=== PATIENT | female | born 1960 | race Caucasian/White ===

== ENCOUNTER → 2018-03-15 | Outpatient (CLI) | payer OTHER, MEDICARE ==
[~2018-03-15] MED LIST: ATOR10TA PO; METH500T7 PO; NITR100C56 PO; UNK BP MED; [UNRECOGNIZED DRUG - REMARK]
[2018-03-15 14:17] LABS: BASOPHILS # (AUTO) 0.04 x10^3/uL (0-0.1); BASOPHILS % (AUTO) 0 % (0-1); EOSINOPHILS # (AUTO) 0.24 x10^3/uL (0-0.4); EOSINOPHILS % (AUTO) 3 % (1-7); LYMPHOCYTES % (AUTO) 38 % (22-44); MD NO; MEAN CORPUSCULAR HEMOGLOBIN 29.8 pg (27.0-34.8); MEAN CORPUSCULAR HGB CONC 33.6 g/dL (32.4-35.8); MEAN CORPUSCULAR VOLUME 88.8 fL (80-100); MEAN PLATELET VOLUME 8.2 fL (7.4-10.4); MONOCYTES # (AUTO) 0.54 x10^3/uL (0.2-0.8); MONOCYTES % (AUTO) 5 % (2-9); NEUTROPHILS # (AUTO) 5.28 x10^3/uL (1.8-6.8); NEUTROPHILS % (AUTO) 53 % (42-75); PLATELET COUNT 298 x10^3/uL (130-400); RED BLOOD COUNT 5.37 x10^6/uL (3.82-5.3); RED CELL DISTRIBUTION WIDTH 13.2 % (9.6-15.2)
[2018-03-15 14:24] LABS: INTERNATIONAL NORMALIZED RATIO 1.02 (0.93-1.1); PROTHROMBIN TIME 10.5 Seconds (9.6-11.5)
[2018-03-15 14:27] LABS: ALANINE AMINOTRANSFERASE 23 U/L (12-78); ALBUMIN 3.3 g/dL (3.4-5.0); ANION GAP 10 mmol/L (5-15); CALCIUM 9.2 mg/dL (8.5-10.1); CHLORIDE 98 mmol/L (98-107); CREATININE 0.69 mg/dL (0.55-1.02)
[2018-03-15 14:28] LABS: ALKALINE PHOSPHATASE 82 U/L (45-117); BILIRUBIN,TOTAL 0.3 mg/dL (0.2-1.0); TOTAL PROTEIN 7.7 g/dL (6.4-8.2)
[2018-03-15 14:30] LABS: MICROSCOPIC NOT IND
[2018-03-15 14:46] LABS: CULTURE INDICATED? NO
== END | disposition home or self-care (01) ==
LOC: STAR 13:10
PROVIDERS: ATTEND Neurological Surgery
DX: Z01.818 Encounter for other preprocedural examination (principal); M51.37 Other intervertebral disc degeneration, lumbosacral region; M48.061 Spinal stenosis, lumbar region without neurogenic claudication; M41.34 Thoracogenic scoliosis, thoracic region; M99.13 Subluxation complex (vertebral) of lumbar region
CPT/HCPCS: 36415; 71046; 72110; 80053; 81003; 85025; 85610; 85730; 93005

== ENCOUNTER 2018-03-24 07:00 | Inpatient (IN) | payer OTHER, MEDICARE ==
[~2018-03-24] VITALS: Ht 170.2 cm; Wt 99.4 kg
[~2018-03-24 07:00] MED LIST changes: +ALPR-475 PO; +BACITRACIN 50,000 UNIT ONE; +BUPIVACAINE 0.25% ONE; +BUPIVACAINE/PF 0.5% ONE; +CITA20TA6 PO; +EPINEPHRINE 1 MG/ML, 1ML ONE; +INSU200I4 SQ-INSULIN; +LISI-170 PO; +ONDA4TAB7 PO; +PIOG30TA67 PO
[2018-03-24] MEDS ORDERED: LACTATED RINGERS 1,000 ML IV SCH (09:49)
[2018-03-24] MEDS ORDERED: GABAPENTIN 300 MG CAPSULE PO ONE (10:00)
[2018-03-24] MEDS ORDERED: ONDANSETRON ODT 8 MG PO ONE (10:00)
[2018-03-24] MEDS ORDERED: MIDAZOLAM 1 MG/ML, 2ML ONE (10:30)
[2018-03-24] MEDS ORDERED: PROPOFOL 10 MG/ML, 20ML ONE (10:30)
[2018-03-24] MEDS ORDERED: DEXAMETHASONE 4 MG/ML, 1ML ONE ×2 (10:30)
[2018-03-24] MEDS ORDERED: CEFAZOLIN 1,000 MG ONE ×2 (10:30)
[2018-03-24] MEDS ORDERED: FENTANYL PF 250 MCG/5ML ONE (10:30)
[2018-03-24] MEDS ORDERED: SUCCINYLCHOLINE 20 MG/ML, 10ML ONE (10:30)
[2018-03-24] MEDS ORDERED: PROPOFOL 50 ML ONE ×4 (10:31→14:43)
[2018-03-24 10:39] LABS: HCG UR SG 1.022 (1.003-1.030)
[2018-03-24 10:50] LABS: AMPHETAMINE SCREEN, URINE Negative (Negative); BARBITURATE SCREEN, URINE Negative (Negative); BENZODIAZEPINE SCREEN, URINE Negative (Negative); CANNABINOID SCREEN, URINE Positive (Negative); COCAINE SCREEN, URINE Negative (Negative); METHADONE SCREEN, URINE Negative (Negative); OPIATE SCREEN, URINE Negative (Negative)
[2018-03-24] MEDS ORDERED: PHENYLEPHRINE 10 MG/ML ONE (11:41)
[2018-03-24] MEDS ORDERED: ROCURONIUM 10 MG/ML,10ML ONE (11:41)
[2018-03-24] MEDS ORDERED: FENTANYL PF 100 MCG/2ML ONE ×2 (12:34→16:08)
[2018-03-24] MEDS ORDERED: EPHEDRINE 50 MG/ML, 1ML IVPush PRN (13:30)
[2018-03-24] MEDS ORDERED: PROCHLORPERAZINE 5 MG/ML, 2ML IV PRN (13:30)
[2018-03-24] MEDS ORDERED: ALBUTEROL/IPRATROPIUM 2.5MG/0.5MG, 3 ML NPPB PRN (13:30)
[2018-03-24] MEDS ORDERED: FENTANYL PF 100 MCG/2ML IV PRN (13:30)
[2018-03-24] MEDS ORDERED: MEPERIDINE/PF 25MG/0.5ML IVPush PRN (13:30)
[2018-03-24] MEDS ORDERED: LORazepam 2 MG/ML, 1ML IVPush PRN (13:30)
[2018-03-24] MEDS ORDERED: MORPHINE SULFATE 4 MG/ML, 1ML IVPush PRN (13:30)
[2018-03-24] MEDS ORDERED: METOPROLOL 1 MG/ML, 5ML IV PRN (13:30)
[2018-03-24] MEDS ORDERED: OXYcodone 5 MG/5 ML ORAL.SOL UDC PO PRN (13:30)
[2018-03-24] MEDS ORDERED: MIDAZOLAM 1 MG/ML, 2ML IV PRN (13:30)
[2018-03-24] MEDS ORDERED: SCOPOLAMINE PATCH, 1.5MG PATCH.TD72 TD PRN (13:30)
[2018-03-24] MEDS ORDERED: hydrALAzine 20 MG/ML, 1ML IV PRN (13:30)
[2018-03-24] MEDS ORDERED: HYDROmorphone 1 MG/ML, 1ML IV PRN (13:30)
[2018-03-24] MEDS ORDERED: LABETALOL 5MG/ML, 20ML IV PRN ×2 (13:30→18:00)
[2018-03-24] MEDS ORDERED: BUPIVACAINE/PF 0.25% EPIDPUSH ONE (14:26)
[2018-03-24] MEDS ORDERED: FENTANYL PF 100 MCG/2ML EPIDPUSH ONE (14:26)
[2018-03-24] MEDS ORDERED: INSULIN SINGLE DOSE, ER SQ-INSULIN ONE ×2 (15:54→16:54)
[2018-03-24] MEDS ORDERED: INSULIN REGULAR 100 UNITS/ML, 3ML VIAL SQ-INSULIN ONE ×2 (16:00→17:00)
[2018-03-24] MEDS ORDERED: OXYcodone 5 MG/5 ML ORAL.SOL UDC ONE (16:08)
[2018-03-24] MEDS ORDERED: BISACODYL 10 MG SUPP PR PRN (18:00)
[2018-03-24] MEDS ORDERED: PROMETHAZINE 25 MG/ML, 1ML IM PRN (18:00)
[2018-03-24] MEDS ORDERED: ONDANSETRON 2MG/ML, 2ML IV PRN (18:00)
[2018-03-24] MEDS ORDERED: ONDANSETRON ODT 4 MG PO PRN (18:30)
[2018-03-24] MEDS: NS + 20MEQ KCL 1,000 ML IV SCH (18:33)
[2018-03-24] MEDS: CEFAZOLIN PMX 1GM/50ML 50 ML IVPB SCH (18:33)
[2018-03-24 18:46] VITALS: BP 119/72
[2018-03-24] MEDS ORDERED: METHOCARBAMOL 1,000 MG in DEXTROSE 5% 100 ML IV ONE (19:00)
[2018-03-24] MEDS: morphine SULFATE 10 MG/ML, 1ML IV PRN ×2 (19:42→23:50)
[2018-03-24] MEDS ORDERED: ZOLPIDEM 5MG TABLET PO PRN (21:00)
[2018-03-24] MEDS: DOXYCYCLINE 100MG TABLET PO SCH (21:56)
[2018-03-24] MEDS: INSULIN REGULAR 100 UNITS/ML, 3ML VIAL SQ-INSULIN SCH (21:58)
[2018-03-24] MEDS: OXYcodone/APAP 5/325MG TABLET PO PRN (23:50)
[2018-03-25] MEDS: morphine SULFATE 10 MG/ML, 1ML IV PRN ×4 (00:09→16:23)
[2018-03-25 00:39] VITALS: BP 111/68
[2018-03-25] MEDS: CEFAZOLIN PMX 1GM/50ML 50 ML IVPB SCH ×3 (03:08→18:08)
[2018-03-25] MEDS: NS + 20MEQ KCL 1,000 ML IV SCH ×3 (03:40→23:43)
[2018-03-25] MEDS: METHOCARBAMOL 750 MG in DEXTROSE 5% 100 ML IV SCH ×3 (03:45→19:40)
[2018-03-25 05:43] LABS: BASOPHILS # (AUTO) 0.02 x10^3/uL (0-0.1); BASOPHILS % (AUTO) 0 % (0-1); EOSINOPHILS # (AUTO) 0.01 x10^3/uL (0-0.4); EOSINOPHILS % (AUTO) 0 % (1-7); LYMPHOCYTES % (AUTO) 12 % (22-44); MD NO; MEAN CORPUSCULAR HEMOGLOBIN 30.2 pg (27.0-34.8); MEAN CORPUSCULAR HGB CONC 33.6 g/dL (32.4-35.8); MEAN CORPUSCULAR VOLUME 89.9 fL (80-100); MEAN PLATELET VOLUME 8.1 fL (7.4-10.4); MONOCYTES # (AUTO) 0.77 x10^3/uL (0.2-0.8); MONOCYTES % (AUTO) 5 % (2-9); NEUTROPHILS # (AUTO) 12.65 x10^3/uL (1.8-6.8); NEUTROPHILS % (AUTO) 82 % (42-75); PLATELET COUNT 251 x10^3/uL (130-400); RED BLOOD COUNT 4.32 x10^6/uL (3.82-5.3); RED CELL DISTRIBUTION WIDTH 13.6 % (9.6-15.2)
[2018-03-25 05:48] LABS: ANION GAP 9 mmol/L (5-15); CALCIUM 7.9 mg/dL (8.5-10.1); CHLORIDE 104 mmol/L (98-107)
[2018-03-25 05:49] LABS: CREATININE 0.79 mg/dL (0.55-1.02)
[2018-03-25] MEDS: ENOXAPARIN 40 MG/0.4 ML SQ SCH (06:29)
[2018-03-25] MEDS: OXYcodone/APAP 5/325MG TABLET PO PRN (06:35)
[2018-03-25] MEDS: INSULIN REGULAR 100 UNITS/ML, 3ML VIAL SQ-INSULIN SCH ×4 (07:00→20:59)
[2018-03-25 07:50] VITALS: BP 105/69
[2018-03-25] MEDS: PIOGLITAZONE 15 MG TABLET PO SCH (08:57)
[2018-03-25] MEDS: INSULIN DEGLUDEC SQ-INSULIN SCH (09:00)
[2018-03-25] MEDS: DOXYCYCLINE 100MG TABLET PO SCH ×2 (09:12→20:58)
[2018-03-25] MEDS: SENNA/DOCUSATE TABLET PO SCH (09:12)
[2018-03-25] MEDS: LISINOPRIL 20 MG TABLET PO SCH (09:12)
[2018-03-25] MEDS: CITALOPRAM 20 MG TABLET PO SCH (09:12)
[2018-03-25 12:50] VITALS: BP 112/67
[2018-03-25] MEDS: ONDANSETRON 2MG/ML, 2ML IV PRN (13:06)
[2018-03-25] MEDS: HYDROcodone/APAP 10/325 MG TABLET PO PRN ×2 (13:13→19:40)
[2018-03-25 19:30] VITALS: BP 106/67
[2018-03-26 01:11] VITALS: BP 109/66
[2018-03-26] MEDS: HYDROcodone/APAP 10/325 MG TABLET PO PRN ×4 (01:22→20:20)
[2018-03-26] MEDS: CEFAZOLIN PMX 1GM/50ML 50 ML IVPB SCH ×3 (02:28→18:07)
[2018-03-26] MEDS: METHOCARBAMOL 750 MG in DEXTROSE 5% 100 ML IV SCH ×3 (03:09→20:19)
[2018-03-26] MEDS: HYDROmorphone 2MG TABLET PO PRN ×3 (03:54→15:28)
[2018-03-26] MEDS: ONDANSETRON 2MG/ML, 2ML IV PRN (04:04)
[2018-03-26] MEDS: ENOXAPARIN 40 MG/0.4 ML SQ SCH (05:27)
[2018-03-26 05:49] LABS: BASOPHILS # (AUTO) 0.02 x10^3/uL (0-0.1); BASOPHILS % (AUTO) 0 % (0-1); EOSINOPHILS # (AUTO) 0.16 x10^3/uL (0-0.4); EOSINOPHILS % (AUTO) 1 % (1-7); LYMPHOCYTES # (AUTO) 2.97 x10^3/uL (1-3.4); LYMPHOCYTES % (AUTO) 21 % (22-44); MD NO; MEAN CORPUSCULAR HEMOGLOBIN 30.4 pg (27.0-34.8); MEAN CORPUSCULAR HGB CONC 33.8 g/dL (32.4-35.8); MEAN CORPUSCULAR VOLUME 89.9 fL (80-100); MEAN PLATELET VOLUME 8.2 fL (7.4-10.4); MONOCYTES # (AUTO) 0.75 x10^3/uL (0.2-0.8); MONOCYTES % (AUTO) 5 % (2-9); NEUTROPHILS # (AUTO) 10.06 x10^3/uL (1.8-6.8); NEUTROPHILS % (AUTO) 72 % (42-75); PLATELET COUNT 221 x10^3/uL (130-400); RED BLOOD COUNT 4.22 x10^6/uL (3.82-5.3); RED CELL DISTRIBUTION WIDTH 13.8 % (9.6-15.2)
[2018-03-26 05:51] LABS: ANION GAP 8 mmol/L (5-15); CALCIUM 7.7 mg/dL (8.5-10.1); CHLORIDE 106 mmol/L (98-107); CREATININE 0.61 mg/dL (0.55-1.02)
[2018-03-26 07:43] VITALS: BP 124/74
[2018-03-26] MEDS: PIOGLITAZONE 15 MG TABLET PO SCH (07:56)
[2018-03-26] MEDS: INSULIN REGULAR 100 UNITS/ML, 3ML VIAL SQ-INSULIN SCH ×4 (07:56→20:20)
[2018-03-26] MEDS: CITALOPRAM 20 MG TABLET PO SCH (07:56)
[2018-03-26] MEDS: SENNA/DOCUSATE TABLET PO SCH (07:56)
[2018-03-26] MEDS: DOXYCYCLINE 100MG TABLET PO SCH ×2 (07:56→20:20)
[2018-03-26] MEDS: LISINOPRIL 20 MG TABLET PO SCH (07:57)
[2018-03-26] MEDS: INSULIN DEGLUDEC SQ-INSULIN SCH (08:05)
[2018-03-26] MEDS: NS + 20MEQ KCL 1,000 ML IV SCH ×2 (10:00→20:00)
[2018-03-26 14:24] VITALS: BP 102/47
[2018-03-26] MEDS: MAGNESIUM HYDROXIDE 8%, 30ML UDC PO PRN (16:46)
[2018-03-26 19:30] VITALS: BP 124/72
[2018-03-27] MEDS: HYDROcodone/APAP 10/325 MG TABLET PO PRN ×5 (00:54→20:44)
[2018-03-27 01:07] VITALS: BP 105/68
[2018-03-27] MEDS: HYDROmorphone 2MG TABLET PO PRN (01:57)
[2018-03-27] MEDS: CEFAZOLIN PMX 1GM/50ML 50 ML IVPB SCH ×3 (01:57→18:27)
[2018-03-27] MEDS: METHOCARBAMOL 750 MG TABLET PO SCH ×3 (02:35→21:01)
[2018-03-27] MEDS: NS + 20MEQ KCL 1,000 ML IV SCH ×3 (04:00→23:19)
[2018-03-27] MEDS: ENOXAPARIN 40 MG/0.4 ML SQ SCH (05:01)
[2018-03-27 05:45] LABS: BASOPHILS # (AUTO) 0.03 x10^3/uL (0-0.1); BASOPHILS % (AUTO) 0 % (0-1); EOSINOPHILS # (AUTO) 0.16 x10^3/uL (0-0.4); EOSINOPHILS % (AUTO) 1 % (1-7); LYMPHOCYTES # (AUTO) 3.43 x10^3/uL (1-3.4); LYMPHOCYTES % (AUTO) 27 % (22-44); MD NO; MEAN CORPUSCULAR HGB CONC 33.5 g/dL (32.4-35.8); MEAN CORPUSCULAR VOLUME 89.7 fL (80-100); MEAN PLATELET VOLUME 8.1 fL (7.4-10.4); MONOCYTES # (AUTO) 0.76 x10^3/uL (0.2-0.8); MONOCYTES % (AUTO) 6 % (2-9); NEUTROPHILS # (AUTO) 8.31 x10^3/uL (1.8-6.8); NEUTROPHILS % (AUTO) 66 % (42-75); PLATELET COUNT 236 x10^3/uL (130-400); RED BLOOD COUNT 4.24 x10^6/uL (3.82-5.3); RED CELL DISTRIBUTION WIDTH 13.8 % (9.6-15.2)
[2018-03-27 05:50] LABS: ANION GAP 5 mmol/L (5-15); CHLORIDE 103 mmol/L (98-107)
[2018-03-27 05:51] LABS: CREATININE 0.65 mg/dL (0.55-1.02)
[2018-03-27] MEDS: INSULIN REGULAR 100 UNITS/ML, 3ML VIAL SQ-INSULIN SCH ×4 (07:00→21:00)
[2018-03-27 07:19] VITALS: BP 102/67
[2018-03-27] MEDS: INSULIN DEGLUDEC SQ-INSULIN SCH (09:00)
[2018-03-27] MEDS: DIPHENHYDRAMINE 50 MG CAPSULE PO PRN ×2 (09:33→13:20)
[2018-03-27] MEDS: PIOGLITAZONE 15 MG TABLET PO SCH (09:33)
[2018-03-27] MEDS: SENNA/DOCUSATE TABLET PO SCH (09:34)
[2018-03-27] MEDS: LISINOPRIL 20 MG TABLET PO SCH (09:34)
[2018-03-27] MEDS: DOXYCYCLINE 100MG TABLET PO SCH ×2 (09:34→20:44)
[2018-03-27] MEDS: CITALOPRAM 20 MG TABLET PO SCH (09:34)
[2018-03-27 12:50] VITALS: BP 93/55
[2018-03-27] MEDS: MAGNESIUM HYDROXIDE 8%, 30ML UDC PO PRN (16:18)
[2018-03-27 20:20] VITALS: BP 97/62
[2018-03-28] MEDS: CEFAZOLIN PMX 1GM/50ML 50 ML IVPB SCH ×2 (02:14→10:31)
[2018-03-28 02:24] VITALS: BP 106/69
[2018-03-28] MEDS: HYDROcodone/APAP 10/325 MG TABLET PO PRN ×4 (02:30→19:25)
[2018-03-28] MEDS: METHOCARBAMOL 750 MG TABLET PO SCH ×3 (05:01→22:00)
[2018-03-28] MEDS: ENOXAPARIN 40 MG/0.4 ML SQ SCH (05:01)
[2018-03-28] MEDS: INSULIN REGULAR 100 UNITS/ML, 3ML VIAL SQ-INSULIN SCH ×4 (07:00→21:00)
[2018-03-28 07:58] VITALS: BP 133/58
[2018-03-28] MEDS ORDERED: MAGNESIUM CITRATE 300ML ORAL SOL PO ONE (09:00)
[2018-03-28] MEDS ORDERED: KETOROLAC 30 MG/1 ML IV ONE (09:00)
[2018-03-28] MEDS: NS + 20MEQ KCL 1,000 ML IV SCH ×2 (10:00→19:18)
[2018-03-28] MEDS: PIOGLITAZONE 15 MG TABLET PO SCH (10:25)
[2018-03-28] MEDS: GABAPENTIN 300 MG CAPSULE PO SCH ×3 (10:25→22:55)
[2018-03-28] MEDS: CITALOPRAM 20 MG TABLET PO SCH (10:26)
[2018-03-28] MEDS: SENNA/DOCUSATE TABLET PO SCH (10:26)
[2018-03-28] MEDS: LISINOPRIL 20 MG TABLET PO SCH (10:26)
[2018-03-28] MEDS: DOXYCYCLINE 100MG TABLET PO SCH ×2 (10:26→21:36)
[2018-03-28] MEDS: INSULIN DEGLUDEC SQ-INSULIN SCH (10:27)
[2018-03-28 10:29] LABS: ANION GAP 6 mmol/L (5-15); CALCIUM 7.9 mg/dL (8.5-10.1); CHLORIDE 101 mmol/L (98-107); CREATININE 0.56 mg/dL (0.55-1.02)
[2018-03-28 12:57] VITALS: BP 130/61
[2018-03-28 20:16] VITALS: BP 113/73
[2018-03-29 01:59] VITALS: BP 109/71
[2018-03-29] MEDS: HYDROcodone/APAP 10/325 MG TABLET PO PRN ×4 (02:40→23:17)
[2018-03-29 05:42] LABS: ANION GAP 6 mmol/L (5-15); CALCIUM 8.7 mg/dL (8.5-10.1); CHLORIDE 98 mmol/L (98-107); CREATININE 0.55 mg/dL (0.55-1.02)
[2018-03-29] MEDS: NS + 20MEQ KCL 1,000 ML IV SCH ×2 (05:56→16:00)
[2018-03-29] MEDS: METHOCARBAMOL 750 MG TABLET PO SCH ×3 (06:06→18:40)
[2018-03-29] MEDS: ENOXAPARIN 40 MG/0.4 ML SQ SCH (06:09)
[2018-03-29] MEDS: INSULIN REGULAR 100 UNITS/ML, 3ML VIAL SQ-INSULIN SCH ×4 (07:00→20:48)
[2018-03-29 07:10] VITALS: BP 122/76
[2018-03-29] MEDS: ONDANSETRON 2MG/ML, 2ML IV PRN (08:10)
[2018-03-29] MEDS ORDERED: ONDANSETRON 2MG/ML, 2ML IVPush PRN (09:00)
[2018-03-29] MEDS ORDERED: SCOPOLAMINE PATCH, 1.5MG PATCH.TD72 TD ONE (09:00)
[2018-03-29] MEDS: INSULIN DEGLUDEC 40 UNIT SQ-INSULIN SCH (09:00)
[2018-03-29] MEDS: SENNA/DOCUSATE TABLET PO SCH (09:00)
[2018-03-29] MEDS: PIOGLITAZONE 15 MG TABLET PO SCH (11:42)
[2018-03-29] MEDS: GABAPENTIN 300 MG CAPSULE PO SCH ×3 (11:43→23:15)
[2018-03-29] MEDS: CITALOPRAM 20 MG TABLET PO SCH (11:43)
[2018-03-29] MEDS: LISINOPRIL 20 MG TABLET PO SCH (11:43)
[2018-03-29] MEDS: DOXYCYCLINE 100MG TABLET PO SCH ×2 (11:43→23:16)
[2018-03-29 12:20] VITALS: BP 123/71
[2018-03-29] MEDS ORDERED: MIDAZOLAM 1 MG/ML, 5ML ONE (15:07)
[2018-03-29] MEDS ORDERED: FLUMAZENIL 0.1 MG/1 ML, 5ML ONE (15:07)
[2018-03-29] MEDS ORDERED: NALOXONE 1 MG/ML, 2ML ONE (15:07)
[2018-03-29] MEDS ORDERED: FENTANYL PF 100 MCG/2ML ONE (15:07)
[2018-03-29 20:27] VITALS: BP 96/54
[2018-03-30 01:55] VITALS: BP 103/66
[2018-03-30] MEDS: NS + 20MEQ KCL 1,000 ML IV SCH ×2 (02:00→12:00)
[2018-03-30] MEDS: HYDROcodone/APAP 10/325 MG TABLET PO PRN ×3 (03:17→21:28)
[2018-03-30] MEDS: ENOXAPARIN 40 MG/0.4 ML SQ SCH (05:17)
[2018-03-30 05:27] LABS: BASOPHILS # (AUTO) 0.02 x10^3/uL (0-0.1); BASOPHILS % (AUTO) 0 % (0-1); EOSINOPHILS # (AUTO) 0.31 x10^3/uL (0-0.4); EOSINOPHILS % (AUTO) 4 % (1-7); LYMPHOCYTES # (AUTO) 2.86 x10^3/uL (1-3.4); LYMPHOCYTES % (AUTO) 38 % (22-44); MD NO; MEAN CORPUSCULAR HEMOGLOBIN 30.7 pg (27.0-34.8); MEAN CORPUSCULAR HGB CONC 34.1 g/dL (32.4-35.8); MEAN CORPUSCULAR VOLUME 90.2 fL (80-100); MEAN PLATELET VOLUME 7.9 fL (7.4-10.4); MONOCYTES # (AUTO) 0.51 x10^3/uL (0.2-0.8); MONOCYTES % (AUTO) 7 % (2-9); NEUTROPHILS # (AUTO) 3.74 x10^3/uL (1.8-6.8); NEUTROPHILS % (AUTO) 50 % (42-75); PLATELET COUNT 275 x10^3/uL (130-400); RED BLOOD COUNT 3.58 x10^6/uL (3.82-5.3); RED CELL DISTRIBUTION WIDTH 13.3 % (9.6-15.2)
[2018-03-30 05:33] LABS: ANION GAP 3 mmol/L (5-15); CHLORIDE 103 mmol/L (98-107); CREATININE 0.56 mg/dL (0.55-1.02)
[2018-03-30] MEDS: METHOCARBAMOL 750 MG TABLET PO SCH ×2 (06:10→15:00)
[2018-03-30] MEDS: GABAPENTIN 300 MG CAPSULE PO SCH ×4 (06:10→21:27)
[2018-03-30] MEDS: INSULIN REGULAR 100 UNITS/ML, 3ML VIAL SQ-INSULIN SCH ×4 (07:00→21:27)
[2018-03-30 07:10] VITALS: BP 125/69
[2018-03-30] MEDS: SENNA/DOCUSATE TABLET PO SCH (08:25)
[2018-03-30] MEDS: DOXYCYCLINE 100MG TABLET PO SCH ×2 (08:25→21:27)
[2018-03-30] MEDS: CITALOPRAM 20 MG TABLET PO SCH (08:26)
[2018-03-30] MEDS: LISINOPRIL 20 MG TABLET PO SCH (08:26)
[2018-03-30] MEDS: INSULIN DEGLUDEC 40 UNIT SQ-INSULIN SCH (08:27)
[2018-03-30] MEDS: PIOGLITAZONE 15 MG TABLET PO SCH (08:34)
[2018-03-30] MEDS ORDERED: BUPIVACAINE 0.25% ONE (12:08)
[2018-03-30] MEDS ORDERED: THROMBIN 5,000 UNIT VIAL TP ONE (12:08)
[2018-03-30] MEDS ORDERED: BUPIVACAINE/PF 0.5% ONE (12:08)
[2018-03-30] MEDS ORDERED: EPINEPHRINE 1 MG/ML, 1ML ONE (12:09)
[2018-03-30] MEDS ORDERED: BACITRACIN 50,000 UNIT ONE (12:09)
[2018-03-30] MEDS ORDERED: FENTANYL PF 100 MCG/2ML ONE ×4 (12:39→15:09)
[2018-03-30 12:47] VITALS: BP 122/77
[2018-03-30] MEDS ORDERED: LABETALOL 5MG/ML, 20ML IV PRN (13:00)
[2018-03-30] MEDS ORDERED: hydrALAzine 20 MG/ML, 1ML IV PRN (13:00)
[2018-03-30] MEDS ORDERED: DIPHENHYDRAMINE 50 MG/ML, 1ML IVPush PRN ×2 (13:00→17:30)
[2018-03-30] MEDS ORDERED: PROCHLORPERAZINE 5 MG/ML, 2ML IV PRN (13:00)
[2018-03-30] MEDS ORDERED: MEPERIDINE/PF 25MG/0.5ML IVPush PRN (13:00)
[2018-03-30] MEDS ORDERED: NEOSPORIN OINT, 15GM ONE (14:09)
[2018-03-30] MEDS ORDERED: SUCCINYLCHOLINE 20 MG/ML, 10ML ONE (14:16)
[2018-03-30] MEDS ORDERED: ROCURONIUM 10MG/ML,5ML ONE (14:16)
[2018-03-30] MEDS ORDERED: GLYCOPYRROLATE 0.2MG/1ML, 5ML ONE (14:16)
[2018-03-30] MEDS ORDERED: ONDANSETRON 2MG/ML, 2ML ONE (14:16)
[2018-03-30] MEDS ORDERED: PROPOFOL 10 MG/ML, 20ML ONE (14:16)
[2018-03-30] MEDS ORDERED: CEFAZOLIN 1,000 MG ONE (14:16)
[2018-03-30] MEDS ORDERED: DEXAMETHASONE 4 MG/ML, 1ML ONE (14:16)
[2018-03-30] MEDS ORDERED: NEOSTIGMINE 1 MG/ML, 10ML ONE (14:16)
[2018-03-30] MEDS ORDERED: OXYcodone 5 MG/5 ML ORAL.SOL UDC ONE (14:46)
[2018-03-30] MEDS ORDERED: HYDROmorphone 2 MG/ML, 1ML ONE ×2 (14:46→15:51)
[2018-03-30] MEDS: HYDROmorphone 1 MG/ML, 1ML IV PRN ×9 (14:49→16:28)
[2018-03-30] MEDS: FENTANYL PF 100 MCG/2ML IV PRN ×4 (14:50→16:09)
[2018-03-30] MEDS: OXYcodone 5 MG/5 ML ORAL.SOL UDC PO PRN ×2 (14:55→16:10)
[2018-03-30] MEDS ORDERED: METHOCARBAMOL 750 MG TABLET ONE (15:00)
[2018-03-30] MEDS ORDERED: hydrALAzine 20 MG/ML, 1ML ONE (15:25)
[2018-03-30] MEDS ORDERED: DIAZEPAM 5 MG/ML, 2ML IV ONE (15:30)
[2018-03-30] MEDS ORDERED: DIPHENHYDRAMINE 25 MG CAPSULE PO PRN (17:22)
[2018-03-30] MEDS ORDERED: ONDANSETRON ODT 4 MG PO PRN (17:30)
[2018-03-30] MEDS ORDERED: METHOCARBAMOL 1,000 MG in DEXTROSE 5% 100 ML IV ONE (18:00)
[2018-03-30] MEDS ORDERED: CEFAZOLIN PMX 1GM/50ML 50 ML IVPB SCH (18:00)
[2018-03-30] MEDS: LACTATED RINGERS 1,000 ML IV SCH (18:19)
[2018-03-30] MEDS: morphine SULFATE 10 MG/ML, 1ML IV PRN ×2 (18:31→22:10)
[2018-03-30 19:20] VITALS: BP 106/65
[2018-03-30] MEDS: FAMOTIDINE 20 MG TABLET PO SCH (21:27)
[2018-03-30] MEDS: CEFAZOLIN PMX 1GM/50ML 50 ML IVPB SCH (21:28)
[2018-03-31 00:07] VITALS: BP 108/59
[2018-03-31] MEDS: HYDROcodone/APAP 10/325 MG TABLET PO PRN ×2 (01:57→06:21)
[2018-03-31] MEDS: METHOCARBAMOL 750 MG in DEXTROSE 5% 100 ML IV SCH ×3 (01:57→17:53)
[2018-03-31] MEDS: morphine SULFATE 10 MG/ML, 1ML IV PRN ×2 (02:45→10:35)
[2018-03-31 04:24] VITALS: BP 101/57
[2018-03-31] MEDS: LACTATED RINGERS 1,000 ML IV SCH ×2 (04:34→16:12)
[2018-03-31 06:10] LABS: BASOPHILS # (AUTO) 0.03 x10^3/uL (0-0.1); BASOPHILS % (AUTO) 0 % (0-1); EOSINOPHILS # (AUTO) 0.29 x10^3/uL (0-0.4); EOSINOPHILS % (AUTO) 3 % (1-7); LYMPHOCYTES # (AUTO) 2.47 x10^3/uL (1-3.4); LYMPHOCYTES % (AUTO) 26 % (22-44); MD NO; MEAN CORPUSCULAR HEMOGLOBIN 29.7 pg (27.0-34.8); MEAN CORPUSCULAR HGB CONC 33.2 g/dL (32.4-35.8); MEAN CORPUSCULAR VOLUME 89.6 fL (80-100); MEAN PLATELET VOLUME 7.8 fL (7.4-10.4); MONOCYTES # (AUTO) 0.61 x10^3/uL (0.2-0.8); MONOCYTES % (AUTO) 6 % (2-9); NEUTROPHILS # (AUTO) 6.27 x10^3/uL (1.8-6.8); NEUTROPHILS % (AUTO) 65 % (42-75); PLATELET COUNT 314 x10^3/uL (130-400); RED BLOOD COUNT 3.75 x10^6/uL (3.82-5.3)
[2018-03-31] MEDS: INSULIN REGULAR 100 UNITS/ML, 3ML VIAL SQ-INSULIN SCH ×4 (06:20→20:50)
[2018-03-31] MEDS: GABAPENTIN 300 MG CAPSULE PO SCH ×4 (06:21→22:05)
[2018-03-31] MEDS: CEFAZOLIN PMX 1GM/50ML 50 ML IVPB SCH (06:21)
[2018-03-31 06:53] LABS: ANION GAP 8 mmol/L (5-15); CALCIUM 8.9 mg/dL (8.5-10.1); CHLORIDE 101 mmol/L (98-107); CREATININE 0.57 mg/dL (0.55-1.02)
[2018-03-31 07:23] VITALS: BP_SYST 119; BP_SYST 142; BP_DIAS 69; BP_DIAS 73
[2018-03-31] MEDS: LISINOPRIL 20 MG TABLET PO SCH (08:58)
[2018-03-31] MEDS: CITALOPRAM 20 MG TABLET PO SCH (08:58)
[2018-03-31] MEDS: DOXYCYCLINE 100MG TABLET PO SCH ×2 (08:58→22:05)
[2018-03-31] MEDS: PIOGLITAZONE 15 MG TABLET PO SCH (08:58)
[2018-03-31] MEDS: FAMOTIDINE 20 MG TABLET PO SCH ×2 (08:59→22:05)
[2018-03-31] MEDS: POLYETHYLENE GLYCOL 17 GM PACKET PO SCH (08:59)
[2018-03-31] MEDS: INSULIN DEGLUDEC 40 UNIT SQ-INSULIN SCH (08:59)
[2018-03-31] MEDS: SENNA/DOCUSATE TABLET PO SCH (08:59)
[2018-03-31] MEDS: HYDROcodone/APAP 10/325 MG TABLET PO SCH ×4 (10:25→22:05)
[2018-03-31 14:14] VITALS: BP 121/65
[2018-03-31] MEDS: ENOXAPARIN 40 MG/0.4 ML SQ SCH (15:17)
[2018-03-31 19:10] VITALS: BP 101/44
[2018-04-01 02:33] VITALS: BP 126/75
[2018-04-01] MEDS: METHOCARBAMOL 750 MG TABLET PO SCH ×4 (02:35→20:00)
[2018-04-01] MEDS: HYDROcodone/APAP 10/325 MG TABLET PO SCH ×7 (02:35→23:49)
[2018-04-01] MEDS: LACTATED RINGERS 1,000 ML IV SCH ×2 (02:38→22:05)
[2018-04-01 05:19] LABS: BASOPHILS # (AUTO) 0.03 x10^3/uL (0-0.1); BASOPHILS % (AUTO) 0 % (0-1); EOSINOPHILS # (AUTO) 0.25 x10^3/uL (0-0.4); EOSINOPHILS % (AUTO) 2 % (1-7); LYMPHOCYTES # (AUTO) 2.52 x10^3/uL (1-3.4); LYMPHOCYTES % (AUTO) 23 % (22-44); MD NO; MEAN CORPUSCULAR HEMOGLOBIN 30.3 pg (27.0-34.8); MEAN CORPUSCULAR HGB CONC 33.9 g/dL (32.4-35.8); MEAN CORPUSCULAR VOLUME 89.3 fL (80-100); MEAN PLATELET VOLUME 7.8 fL (7.4-10.4); MONOCYTES # (AUTO) 0.76 x10^3/uL (0.2-0.8); MONOCYTES % (AUTO) 7 % (2-9); NEUTROPHILS # (AUTO) 7.36 x10^3/uL (1.8-6.8); NEUTROPHILS % (AUTO) 67 % (42-75); PLATELET COUNT 312 x10^3/uL (130-400); RED BLOOD COUNT 3.63 x10^6/uL (3.82-5.3); RED CELL DISTRIBUTION WIDTH 13.5 % (9.6-15.2)
[2018-04-01 05:27] LABS: ANION GAP 3 mmol/L (5-15); CALCIUM 8.1 mg/dL (8.5-10.1); CHLORIDE 99 mmol/L (98-107)
[2018-04-01] MEDS: INSULIN REGULAR 100 UNITS/ML, 3ML VIAL SQ-INSULIN SCH ×4 (07:00→21:00)
[2018-04-01 08:33] VITALS: BP 110/64
[2018-04-01] MEDS: PIOGLITAZONE 15 MG TABLET PO SCH (08:49)
[2018-04-01] MEDS: POLYETHYLENE GLYCOL 17 GM PACKET PO SCH (08:49)
[2018-04-01] MEDS: GABAPENTIN 300 MG CAPSULE PO SCH ×3 (08:49→22:06)
[2018-04-01] MEDS: SENNA/DOCUSATE TABLET PO SCH (08:50)
[2018-04-01] MEDS: DOXYCYCLINE 100MG TABLET PO SCH ×2 (08:50→22:06)
[2018-04-01] MEDS: CITALOPRAM 20 MG TABLET PO SCH (08:50)
[2018-04-01] MEDS: FAMOTIDINE 20 MG TABLET PO SCH ×2 (08:50→22:05)
[2018-04-01] MEDS: LISINOPRIL 20 MG TABLET PO SCH (08:50)
[2018-04-01] MEDS: INSULIN DEGLUDEC 40 UNIT SQ-INSULIN SCH (08:52)
[2018-04-01 13:55] VITALS: BP 113/66
[2018-04-01] MEDS: ENOXAPARIN 40 MG/0.4 ML SQ SCH (16:28)
[2018-04-01 20:03] VITALS: BP 98/77
[2018-04-02 01:30] VITALS: BP 95/62
[2018-04-02] MEDS: MAGNESIUM HYDROXIDE 8%, 30ML UDC PO PRN (01:45)
[2018-04-02] MEDS: METHOCARBAMOL 750 MG TABLET PO SCH ×4 (01:48→20:00)
[2018-04-02 05:24] LABS: ANION GAP 5 mmol/L (5-15); CALCIUM 8.5 mg/dL (8.5-10.1); CHLORIDE 100 mmol/L (98-107); CREATININE 0.56 mg/dL (0.55-1.02)
[2018-04-02 05:30] LABS: BASOPHILS # (AUTO) 0.02 x10^3/uL (0-0.1); BASOPHILS % (AUTO) 0 % (0-1); EOSINOPHILS % (AUTO) 3 % (1-7); LYMPHOCYTES # (AUTO) 2.77 x10^3/uL (1-3.4); LYMPHOCYTES % (AUTO) 31 % (22-44); MD NO; MEAN CORPUSCULAR HEMOGLOBIN 30.8 pg (27.0-34.8); MEAN CORPUSCULAR HGB CONC 34.2 g/dL (32.4-35.8); MEAN PLATELET VOLUME 7.6 fL (7.4-10.4); MONOCYTES # (AUTO) 0.65 x10^3/uL (0.2-0.8); MONOCYTES % (AUTO) 7 % (2-9); NEUTROPHILS # (AUTO) 5.26 x10^3/uL (1.8-6.8); NEUTROPHILS % (AUTO) 58 % (42-75); PLATELET COUNT 329 x10^3/uL (130-400); RED CELL DISTRIBUTION WIDTH 13.8 % (9.6-15.2)
[2018-04-02] MEDS: INSULIN REGULAR 100 UNITS/ML, 3ML VIAL SQ-INSULIN SCH ×4 (07:00→23:18)
[2018-04-02] MEDS: HYDROcodone/APAP 10/325 MG TABLET PO SCH ×5 (07:37→23:21)
[2018-04-02] MEDS: LACTATED RINGERS 1,000 ML IV SCH (07:39)
[2018-04-02] MEDS ORDERED: OXYcodone IR 5MG TABLET PO PRN (08:30)
[2018-04-02] MEDS: DOXYCYCLINE 100MG TABLET PO SCH ×2 (08:49→23:17)
[2018-04-02] MEDS: LISINOPRIL 20 MG TABLET PO SCH (08:50)
[2018-04-02] MEDS: CITALOPRAM 20 MG TABLET PO SCH (08:50)
[2018-04-02] MEDS: PIOGLITAZONE 15 MG TABLET PO SCH (08:50)
[2018-04-02] MEDS: FAMOTIDINE 20 MG TABLET PO SCH ×2 (08:50→23:17)
[2018-04-02] MEDS: SENNA/DOCUSATE TABLET PO SCH (08:50)
[2018-04-02] MEDS: DEXAMETHASONE 4 MG/ML, 1ML IV SCH ×3 (08:50→23:21)
[2018-04-02] MEDS: POLYETHYLENE GLYCOL 17 GM PACKET PO SCH (08:51)
[2018-04-02 08:52] VITALS: BP 121/78
[2018-04-02] MEDS: INSULIN DEGLUDEC 40 UNIT SQ-INSULIN SCH (09:00)
[2018-04-02] MEDS: GABAPENTIN 300 MG CAPSULE PO SCH ×3 (12:06→23:17)
[2018-04-02 14:37] VITALS: BP 98/63
[2018-04-02] MEDS: ENOXAPARIN 40 MG/0.4 ML SQ SCH (16:25)
[2018-04-02 19:43] VITALS: BP 109/69
[2018-04-03] MEDS: METHOCARBAMOL 750 MG TABLET PO SCH ×5 (02:00→21:00)
[2018-04-03] MEDS: HYDROcodone/APAP 10/325 MG TABLET PO SCH ×6 (02:30→20:07)
[2018-04-03 02:39] VITALS: BP 113/66
[2018-04-03] MEDS: LACTATED RINGERS 1,000 ML IV SCH ×3 (03:42→21:09)
[2018-04-03 05:03] LABS: ANION GAP 6 mmol/L (5-15); CALCIUM 8.4 mg/dL (8.5-10.1); CHLORIDE 99 mmol/L (98-107); CREATININE 0.72 mg/dL (0.55-1.02)
[2018-04-03 05:19] LABS: MEAN CORPUSCULAR HEMOGLOBIN 29.9 pg (27.0-34.8); MEAN CORPUSCULAR HGB CONC 33.8 g/dL (32.4-35.8); MEAN CORPUSCULAR VOLUME 88.6 fL (80-100); MEAN PLATELET VOLUME 7.7 fL (7.4-10.4); PLATELET COUNT 396 x10^3/uL (130-400); RED BLOOD COUNT 3.68 x10^6/uL (3.82-5.3); RED CELL DISTRIBUTION WIDTH 13.5 % (9.6-15.2)
[2018-04-03] MEDS: GABAPENTIN 300 MG CAPSULE PO SCH ×4 (05:35→21:00)
[2018-04-03 06:06] LABS: BASOPHILS # (AUTO) 0.16 x10^3/uL (0-0.1); BASOPHILS % (AUTO) 2 % (0-1); EOSINOPHILS % (AUTO) 0 % (1-7); LYMPHOCYTES # (AUTO) 1.41 x10^3/uL (1-3.4); LYMPHOCYTES % (AUTO) 13 % (22-44); MD SCAN; MONOCYTES # (AUTO) 0.31 x10^3/uL (0.2-0.8); MONOCYTES % (AUTO) 3 % (2-9); NEUTROPHILS # (AUTO) 9.24 x10^3/uL (1.8-6.8); NEUTROPHILS % (AUTO) 83 % (42-75)
[2018-04-03 07:01] VITALS: BP 144/81
[2018-04-03] MEDS: SENNA/DOCUSATE TABLET PO SCH (08:15)
[2018-04-03] MEDS: POLYETHYLENE GLYCOL 17 GM PACKET PO SCH (08:16)
[2018-04-03] MEDS: PIOGLITAZONE 15 MG TABLET PO SCH (08:16)
[2018-04-03] MEDS: CITALOPRAM 20 MG TABLET PO SCH (08:17)
[2018-04-03] MEDS: DOXYCYCLINE 100MG TABLET PO SCH ×2 (08:17→21:00)
[2018-04-03] MEDS: LISINOPRIL 20 MG TABLET PO SCH (08:17)
[2018-04-03] MEDS: FAMOTIDINE 20 MG TABLET PO SCH ×2 (08:17→21:00)
[2018-04-03] MEDS: INSULIN DEGLUDEC 40 UNIT SQ-INSULIN SCH (08:18)
[2018-04-03] MEDS: INSULIN REGULAR 100 UNITS/ML, 3ML VIAL SQ-INSULIN SCH ×4 (08:18→21:08)
[2018-04-03 12:36] VITALS: BP 130/79
[2018-04-03] MEDS ORDERED: HYDR-3240 PO (15:29)
[2018-04-03] MEDS: ENOXAPARIN 40 MG/0.4 ML SQ SCH (16:49)
[2018-04-03 18:50] VITALS: BP 105/65
[2018-04-04 02:18] VITALS: BP 121/74
[2018-04-04] MEDS: METHOCARBAMOL 750 MG TABLET PO SCH ×2 (02:57→09:53)
[2018-04-04] MEDS: HYDROcodone/APAP 10/325 MG TABLET PO SCH ×3 (04:09→09:53)
[2018-04-04 05:20] LABS: ANION GAP 7 mmol/L (5-15); CHLORIDE 102 mmol/L (98-107); CREATININE 0.56 mg/dL (0.55-1.02)
[2018-04-04 05:54] LABS: BASOPHILS # (AUTO) 0.03 x10^3/uL (0-0.1); BASOPHILS % (AUTO) 0 % (0-1); EOSINOPHILS % (AUTO) 2 % (1-7); LYMPHOCYTES % (AUTO) 43 % (22-44); MD NO; MEAN CORPUSCULAR HGB CONC 33.3 g/dL (32.4-35.8); MEAN CORPUSCULAR VOLUME 90.1 fL (80-100); MEAN PLATELET VOLUME 7.8 fL (7.4-10.4); MONOCYTES # (AUTO) 0.65 x10^3/uL (0.2-0.8); MONOCYTES % (AUTO) 6 % (2-9); NEUTROPHILS # (AUTO) 4.86 x10^3/uL (1.8-6.8); NEUTROPHILS % (AUTO) 48 % (42-75); PLATELET COUNT 405 x10^3/uL (130-400); RED BLOOD COUNT 3.63 x10^6/uL (3.82-5.3); RED CELL DISTRIBUTION WIDTH 13.7 % (9.6-15.2)
[2018-04-04] MEDS: GABAPENTIN 300 MG CAPSULE PO SCH ×2 (06:00→11:34)
[2018-04-04] MEDS: INSULIN REGULAR 100 UNITS/ML, 3ML VIAL SQ-INSULIN SCH ×2 (06:39→11:35)
[2018-04-04 07:00] VITALS: BP 119/72
[2018-04-04] MEDS: LACTATED RINGERS 1,000 ML IV SCH (08:00)
[2018-04-04] MEDS: DOXYCYCLINE 100MG TABLET PO SCH (09:52)
[2018-04-04] MEDS: FAMOTIDINE 20 MG TABLET PO SCH (09:52)
[2018-04-04] MEDS: CITALOPRAM 20 MG TABLET PO SCH (09:52)
[2018-04-04] MEDS: LISINOPRIL 20 MG TABLET PO SCH (09:52)
[2018-04-04] MEDS: SENNA/DOCUSATE TABLET PO SCH (09:53)
[2018-04-04] MEDS: POLYETHYLENE GLYCOL 17 GM PACKET PO SCH (09:53)
[2018-04-04] MEDS: INSULIN DEGLUDEC 40 UNIT SQ-INSULIN SCH (09:53)
[2018-04-04] MEDS: PIOGLITAZONE 15 MG TABLET PO SCH (09:53)
[2018-04-04] MEDS ORDERED: METH750T2 PO (10:07)
[2018-04-04] MEDS ORDERED: GABA600T PO (10:08)
[2018-04-04] MEDS ORDERED: HYDR-3307 PO (10:11)
== END 2018-04-04 12:30 | DRG 455 ==
LOC: ORIP 09:34 → 4NOR 17:09 → DCLOUNGE 04-04 11:55
PROVIDERS: ADMIT Neurological Surgery; ATTEND Neurological Surgery
PROC: 0SG0071 Fusion of Lumbar Vertebral Joint with Autologous Tissue Substitute, Posterior Approach, Posterior Column, Open Approach (ICD-10-PCS; 2018-03-24)
PROC: 0SG30AJ Fusion of Lumbosacral Joint with Interbody Fusion Device, Posterior Approach, Anterior Column, Open Approach (ICD-10-PCS; 2018-03-24)
PROC: 0SG3071 Fusion of Lumbosacral Joint with Autologous Tissue Substitute, Posterior Approach, Posterior Column, Open Approach (ICD-10-PCS; 2018-03-24)
PROC: 01NB0ZZ Release Lumbar Nerve, Open Approach (ICD-10-PCS; 2018-03-24)
PROC: 0SB40ZZ Excision of Lumbosacral Disc, Open Approach (ICD-10-PCS; 2018-03-24)
PROC: 4A11X4G Monitoring of Peripheral Nervous Electrical Activity, Intraoperative, External Approach (ICD-10-PCS; 2018-03-24)
PROC: 0SG00AJ Fusion of Lumbar Vertebral Joint with Interbody Fusion Device, Posterior Approach, Anterior Column, Open Approach (ICD-10-PCS; principal; 2018-03-24 12:30)
PROC: 00QT0ZZ Repair Spinal Meninges, Open Approach (ICD-10-PCS; 2018-03-30)
DX: M48.07 Spinal stenosis, lumbosacral region (principal); E11.65 Type 2 diabetes mellitus with hyperglycemia; F41.9 Anxiety disorder, unspecified; G89.29 Other chronic pain; G96.19 Other disorders of meninges, not elsewhere classified; M43.17 Spondylolisthesis, lumbosacral region; M54.17 Radiculopathy, lumbosacral region; E66.01 Morbid (severe) obesity due to excess calories; E11.9 Type 2 diabetes mellitus without complications; I10 Essential (primary) hypertension; F32.9 Major depressive disorder, single episode, unspecified; Z79.84 Long term (current) use of oral hypoglycemic drugs; Z68.36 Body mass index [BMI] 36.0-36.9, adult; Z88.1 Allergy status to other antibiotic agents; Z88.8 Allergy status to other drugs, medicaments and biological substances; Z68.34 Body mass index [BMI] 34.0-34.9, adult
CPT/HCPCS: 36415; 72100; J3490; 72131; 72148; 80048; 80307; 81025; 82962; 85025; 99156; 99157; C1713; C1776; G0378; J0171; J0690; J1100; J1170; J1650; J1815; J1885; J2250; J2405; J2704; J2710; J3010; J3360; J3480; Q0162; C1762; C1781; J0330; J0360; J2270; J2310; J2370; J2800; J7120

== ENCOUNTER 2018-04-06 18:35 | Inpatient (IN) | payer OTHER, MEDICARE ==
[~2018-04-06] VITALS: Ht 170.2 cm; Wt 121.5 kg
[~2018-04-06 18:35] MED LIST changes: -BACITRACIN 50,000 UNIT ONE; -BUPIVACAINE 0.25% ONE; -BUPIVACAINE/PF 0.5% ONE; -EPINEPHRINE 1 MG/ML, 1ML ONE; +GABA600T PO; +HYDR-3240 PO; +HYDR-3307 PO; +METH750T2 PO
[2018-04-06] MEDS ORDERED: SODIUM CHLORIDE 0.9% 1,000ML IVBOLUS ONE (19:00)
[2018-04-06] MEDS ORDERED: ONDANSETRON 2MG/ML, 2ML IVPush ONE (19:00)
[2018-04-06] MEDS ORDERED: ONDANSETRON 2MG/ML, 2ML ONE (19:11)
[2018-04-06] MEDS ORDERED: MORPHINE SULFATE 4 MG/ML, 1ML ONE ×2 (19:12→21:53)
[2018-04-06] MEDS: MORPHINE SULFATE 4 MG/ML, 1ML IVPush PRN ×2 (19:19→21:57)
[2018-04-06 19:21] LABS: BASOPHILS # (AUTO) 0.11 x10^3/uL (0-0.1); BASOPHILS % (AUTO) 1 % (0-1); EOSINOPHILS # (AUTO) 0.34 x10^3/uL (0-0.4); EOSINOPHILS % (AUTO) 3 % (1-7); LYMPHOCYTES # (AUTO) 3.73 x10^3/uL (1-3.4); LYMPHOCYTES % (AUTO) 32 % (22-44); MD NO; MEAN CORPUSCULAR HEMOGLOBIN 29.2 pg (27.0-34.8); MEAN CORPUSCULAR HGB CONC 33.3 g/dL (32.4-35.8); MEAN CORPUSCULAR VOLUME 87.9 fL (80-100); MEAN PLATELET VOLUME 7.3 fL (7.4-10.4); MONOCYTES # (AUTO) 0.65 x10^3/uL (0.2-0.8); MONOCYTES % (AUTO) 6 % (2-9); NEUTROPHILS # (AUTO) 6.91 x10^3/uL (1.8-6.8); NEUTROPHILS % (AUTO) 59 % (42-75); PLATELET COUNT 553 x10^3/uL (130-400); RED CELL DISTRIBUTION WIDTH 13.7 % (9.6-15.2)
[2018-04-06 19:26] LABS: ALBUMIN 2.7 g/dL (3.4-5.0); ANION GAP 9 mmol/L (5-15); CALCIUM 8.6 mg/dL (8.5-10.1); CHLORIDE 101 mmol/L (98-107); CREATININE 0.64 mg/dL (0.55-1.02)
[2018-04-06 19:42] LABS: HCT (SEDRATE) 35.2 % (34.6-47.8)
[2018-04-06] MEDS ORDERED: GADOBUTROL 10 MMOL/10 ML PFS ONE (20:05)
[2018-04-06] MEDS ORDERED: VANCOMYCIN PER PHARMACY MC PRN ×2 (21:00→23:00)
[2018-04-06] MEDS ORDERED: METRONIDAZOLE PMX 500MG/100ML 100 ML IVPB ONE (21:00)
[2018-04-06] MEDS ORDERED: CEFTRIAXONE PMX 2GM/50ML 50 ML IVPB ONE (21:00)
[2018-04-06] MEDS ORDERED: CEFTRIAXONE PMX 2GM/50ML 50 ML ONE (21:15)
[2018-04-06] MEDS ORDERED: METRONIDAZOLE PMX 500MG/100ML 100 ML ONE (21:15)
[2018-04-06 21:29] LABS: INTERNATIONAL NORMALIZED RATIO 1.02 (0.93-1.1); PROTHROMBIN TIME 10.6 Seconds (9.6-11.5)
[2018-04-06] MEDS ORDERED: VANCOMYCIN 2,100 MG in SODIUM CHLORIDE 0.9% 500 ML IV ONE (21:30)
[2018-04-06 21:32] LABS: MICROSCOPIC AUTO
[2018-04-06 22:37] VITALS: BP 119/71
[2018-04-06] MEDS ORDERED: hydrALAzine 20 MG/ML, 1ML IVPush PRN (23:00)
[2018-04-06] MEDS ORDERED: DOCUSATE 100 MG CAPSULE PO PRN (23:00)
[2018-04-06] MEDS ORDERED: ONDANSETRON 2MG/ML, 2ML IVPush PRN (23:00)
[2018-04-06] MEDS ORDERED: VANCOMYCIN 2,000 MG in SODIUM CHLORIDE 0.9% 500 ML IV SCH (23:30)
[2018-04-06] MEDS ORDERED: PHARMACOKINETIC CONSULTATION MC ONE (23:30)
[2018-04-06] MEDS ORDERED: PHARMACOKINETIC MONITORING MC PRN (23:30)
[2018-04-06] MEDS ORDERED: METHOCARBAMOL 750 MG TABLET PO PRN (23:30)
[2018-04-06] MEDS: GABAPENTIN 300 MG CAPSULE PO SCH (23:38)
[2018-04-07 02:36] VITALS: BP 117/74
[2018-04-07] MEDS ORDERED: METRONIDAZOLE PMX 500MG/100ML 100 ML IV SCH (03:00)
[2018-04-07] MEDS: HYDROcodone/APAP 10/325 MG TABLET PO PRN ×3 (03:57→11:42)
[2018-04-07] MEDS: GABAPENTIN 300 MG CAPSULE PO SCH ×4 (04:54→21:42)
[2018-04-07 07:08] VITALS: BP 146/84
[2018-04-07] MEDS: PIPERACILLIN/TAZO/PMX 3.375GM 50 ML IV SCH ×3 (08:07→20:30)
[2018-04-07] MEDS: PIOGLITAZONE 15 MG TABLET PO SCH (08:07)
[2018-04-07] MEDS: CITALOPRAM 20 MG TABLET PO SCH (08:07)
[2018-04-07] MEDS: LISINOPRIL 20 MG TABLET PO SCH (08:08)
[2018-04-07] MEDS: SODIUM CHLORIDE 0.9% 1,000 ML IV SCH (09:28)
[2018-04-07] MEDS: FAMOTIDINE 20 MG TABLET PO SCH ×2 (09:28→21:41)
[2018-04-07] MEDS: METHOCARBAMOL 750 MG in DEXTROSE 5% 100 ML IV SCH ×3 (09:28→22:16)
[2018-04-07] MEDS: VANCOMYCIN 2,000 MG in SODIUM CHLORIDE 0.9% 500 ML IV SCH (11:42)
[2018-04-07] MEDS ORDERED: EPINEPHRINE 1 MG/ML, 1ML ONE (14:03)
[2018-04-07] MEDS ORDERED: BUPIVACAINE 0.25% ONE (14:03)
[2018-04-07] MEDS ORDERED: THROMBIN 5,000 UNIT VIAL TP ONE (14:03)
[2018-04-07] MEDS ORDERED: BUPIVACAINE/PF 0.5% ONE (14:03)
[2018-04-07] MEDS ORDERED: BACITRACIN 50,000 UNIT ONE (14:03)
[2018-04-07 14:12] VITALS: BP 142/86
[2018-04-07] MEDS ORDERED: MEPERIDINE/PF 25MG/0.5ML IVPush PRN (15:00)
[2018-04-07] MEDS ORDERED: FENTANYL PF 100 MCG/2ML IV PRN (15:00)
[2018-04-07] MEDS ORDERED: OXYcodone 5 MG/5 ML ORAL.SOL UDC PO PRN (15:00)
[2018-04-07] MEDS ORDERED: PROMETHAZINE 25 MG/ML, 1ML IV PRN (15:00)
[2018-04-07] MEDS ORDERED: ONDANSETRON 2MG/ML, 2ML IV PRN (15:00)
[2018-04-07] MEDS ORDERED: LABETALOL 5MG/ML, 20ML IV PRN (15:00)
[2018-04-07] MEDS ORDERED: HYDROmorphone 1 MG/ML, 1ML IV PRN (15:00)
[2018-04-07] MEDS ORDERED: hydrALAzine 20 MG/ML, 1ML IV PRN (15:00)
[2018-04-07] MEDS ORDERED: PROPOFOL 10 MG/ML, 20ML ONE (15:44)
[2018-04-07] MEDS ORDERED: ONDANSETRON 2MG/ML, 2ML ONE (15:44)
[2018-04-07] MEDS ORDERED: ROCURONIUM 10 MG/ML,10ML ONE (15:44)
[2018-04-07] MEDS ORDERED: METOCLOPRAMIDE 5 MG/ML, 2ML ONE (15:44)
[2018-04-07] MEDS ORDERED: HYDROmorphone 2 MG/ML, 1ML ONE (17:08)
[2018-04-07] MEDS ORDERED: FENTANYL PF 100 MCG/2ML ONE (17:08)
[2018-04-07] MEDS ORDERED: OXYcodone 5 MG/5 ML ORAL.SOL UDC ONE (17:09)
[2018-04-07] MEDS ORDERED: BISACODYL 10 MG SUPP PR PRN (17:30)
[2018-04-07] MEDS ORDERED: OXYcodone/APAP 5/325MG TABLET PO PRN (17:30)
[2018-04-07] MEDS ORDERED: PROMETHAZINE 25 MG/ML, 1ML IM PRN (17:30)
[2018-04-07] MEDS ORDERED: ONDANSETRON 2MG/ML, 2ML IVPush PRN (17:30)
[2018-04-07] MEDS ORDERED: HYDROcodone/APAP 10/325 MG TABLET PO PRN (17:30)
[2018-04-07] MEDS ORDERED: SENNA/DOCUSATE TABLET PO PRN (17:30)
[2018-04-07] MEDS ORDERED: PHARMACY MAY ADJ FOR RENAL FX MC PRN (17:30)
[2018-04-07 17:58] VITALS: BP 155/85
[2018-04-07 19:14] VITALS: BP 125/67
[2018-04-07] MEDS: NS + 20MEQ KCL 1,000 ML IV SCH (20:33)
[2018-04-07] MEDS: INSULIN DEGLUDEC 20 UNIT SQ-INSULIN SCH (21:00)
[2018-04-07] MEDS ORDERED: CEFTRIAXONE PMX 2GM/50ML 50 ML IV SCH (22:00)
[2018-04-08] MEDS: MORPHINE SULFATE 4 MG/ML, 1ML IV PRN ×2 (00:21→05:20)
[2018-04-08] MEDS: VANCOMYCIN 2,000 MG in SODIUM CHLORIDE 0.9% 500 ML IV SCH ×2 (00:21→12:13)
[2018-04-08 01:14] VITALS: BP 169/83
[2018-04-08] MEDS: PIPERACILLIN/TAZO/PMX 3.375GM 50 ML IV SCH ×4 (02:33→20:06)
[2018-04-08] MEDS: METHOCARBAMOL 750 MG in DEXTROSE 5% 100 ML IV SCH ×4 (03:08→21:53)
[2018-04-08] MEDS: NS + 20MEQ KCL 1,000 ML IV SCH ×2 (05:19→20:00)
[2018-04-08] MEDS: GABAPENTIN 300 MG CAPSULE PO SCH ×4 (05:20→20:00)
[2018-04-08 05:22] LABS: CREATININE 0.68 mg/dL (0.55-1.02)
[2018-04-08 07:16] VITALS: BP 133/74
[2018-04-08] MEDS ORDERED: SODIUM CHLORIDE 0.9% 1,000 ML IV SCH (07:30)
[2018-04-08] MEDS: LISINOPRIL 20 MG TABLET PO SCH (08:59)
[2018-04-08] MEDS: CITALOPRAM 20 MG TABLET PO SCH (08:59)
[2018-04-08] MEDS: FAMOTIDINE 20 MG TABLET PO SCH ×2 (08:59→20:00)
[2018-04-08] MEDS: PIOGLITAZONE 15 MG TABLET PO SCH (08:59)
[2018-04-08] MEDS: HYDROcodone/APAP 10/325 MG TABLET PO PRN ×3 (09:01→20:00)
[2018-04-08] MEDS: SODIUM CHLORIDE 0.9% 1,000 ML IV SCH (09:21)
[2018-04-08 13:20] VITALS: BP 111/67
[2018-04-08 18:59] VITALS: BP 103/52
[2018-04-08] MEDS: INSULIN DEGLUDEC 20 UNIT SQ-INSULIN SCH (21:51)
[2018-04-09] MEDS: VANCOMYCIN 2,000 MG in SODIUM CHLORIDE 0.9% 500 ML IV SCH ×2 (00:36→18:40)
[2018-04-09 00:56] VITALS: BP 121/76
[2018-04-09] MEDS: HYDROcodone/APAP 10/325 MG TABLET PO PRN ×3 (02:47→17:27)
[2018-04-09] MEDS: PIPERACILLIN/TAZO/PMX 3.375GM 50 ML IV SCH ×4 (02:48→20:45)
[2018-04-09] MEDS: METHOCARBAMOL 750 MG in DEXTROSE 5% 100 ML IV SCH ×4 (03:58→23:10)
[2018-04-09 05:43] LABS: ANION GAP 7 mmol/L (5-15); CALCIUM 7.9 mg/dL (8.5-10.1); CHLORIDE 106 mmol/L (98-107)
[2018-04-09 05:45] LABS: BASOPHILS # (AUTO) 0.04 x10^3/uL (0-0.1); BASOPHILS % (AUTO) 0 % (0-1); EOSINOPHILS # (AUTO) 0.31 x10^3/uL (0-0.4); EOSINOPHILS % (AUTO) 3 % (1-7); LYMPHOCYTES # (AUTO) 2.41 x10^3/uL (1-3.4); LYMPHOCYTES % (AUTO) 26 % (22-44); MD NO; MEAN CORPUSCULAR HGB CONC 33.3 g/dL (32.4-35.8); MEAN CORPUSCULAR VOLUME 90.1 fL (80-100); MEAN PLATELET VOLUME 7.2 fL (7.4-10.4); MONOCYTES % (AUTO) 7 % (2-9); NEUTROPHILS # (AUTO) 5.96 x10^3/uL (1.8-6.8); NEUTROPHILS % (AUTO) 63 % (42-75); PLATELET COUNT 513 x10^3/uL (130-400); RED BLOOD COUNT 3.46 x10^6/uL (3.82-5.3); RED CELL DISTRIBUTION WIDTH 13.7 % (9.6-15.2)
[2018-04-09] MEDS: GABAPENTIN 300 MG CAPSULE PO SCH ×4 (06:19→20:45)
[2018-04-09 07:10] VITALS: BP 120/77
[2018-04-09] MEDS: NS + 20MEQ KCL 1,000 ML IV SCH ×2 (07:12→18:22)
[2018-04-09] MEDS: PIOGLITAZONE 15 MG TABLET PO SCH (09:42)
[2018-04-09] MEDS: FAMOTIDINE 20 MG TABLET PO SCH ×2 (09:42→20:45)
[2018-04-09] MEDS: CITALOPRAM 20 MG TABLET PO SCH (09:43)
[2018-04-09] MEDS: SODIUM CHLORIDE 0.9% 1,000 ML IV SCH (09:44)
[2018-04-09] MEDS: LISINOPRIL 20 MG TABLET PO SCH (09:44)
[2018-04-09] MEDS ORDERED: MAGNESIUM SULFATE PMX 2GM/50ML 50 ML IV ONE (10:30)
[2018-04-09 13:10] VITALS: BP 123/63
[2018-04-09] MEDS: MORPHINE SULFATE 4 MG/ML, 1ML IVPush PRN (18:22)
[2018-04-09 18:25] VITALS: BP 149/64
[2018-04-09 20:20] VITALS: BP 126/76
[2018-04-09] MEDS: MAGNESIUM CHLORIDE 64 MG TABLET.DR PO SCH (20:53)
[2018-04-09] MEDS: INSULIN DEGLUDEC 20 UNIT SQ-INSULIN SCH (21:30)
[2018-04-10 00:51] VITALS: BP 135/74
[2018-04-10] MEDS: HYDROcodone/APAP 10/325 MG TABLET PO PRN ×3 (01:09→15:26)
[2018-04-10] MEDS: PIPERACILLIN/TAZO/PMX 3.375GM 50 ML IV SCH ×4 (02:53→21:38)
[2018-04-10] MEDS: MORPHINE SULFATE 4 MG/ML, 1ML IVPush PRN (03:08)
[2018-04-10 05:18] LABS: BASOPHILS # (AUTO) 0.04 x10^3/uL (0-0.1); BASOPHILS % (AUTO) 0 % (0-1); EOSINOPHILS # (AUTO) 0.31 x10^3/uL (0-0.4); EOSINOPHILS % (AUTO) 4 % (1-7); LYMPHOCYTES # (AUTO) 2.65 x10^3/uL (1-3.4); LYMPHOCYTES % (AUTO) 30 % (22-44); MD NO; MEAN CORPUSCULAR HEMOGLOBIN 29.4 pg (27.0-34.8); MEAN CORPUSCULAR HGB CONC 32.7 g/dL (32.4-35.8); MEAN CORPUSCULAR VOLUME 89.8 fL (80-100); MEAN PLATELET VOLUME 7.2 fL (7.4-10.4); MONOCYTES # (AUTO) 0.63 x10^3/uL (0.2-0.8); MONOCYTES % (AUTO) 7 % (2-9); NEUTROPHILS # (AUTO) 5.31 x10^3/uL (1.8-6.8); NEUTROPHILS % (AUTO) 59 % (42-75); PLATELET COUNT 535 x10^3/uL (130-400); RED BLOOD COUNT 3.82 x10^6/uL (3.82-5.3); RED CELL DISTRIBUTION WIDTH 13.9 % (9.6-15.2)
[2018-04-10 05:28] LABS: ANION GAP 8 mmol/L (5-15); CALCIUM 8.7 mg/dL (8.5-10.1); CHLORIDE 106 mmol/L (98-107)
[2018-04-10 05:31] LABS: CREATININE 0.55 mg/dL (0.55-1.02)
[2018-04-10] MEDS: GABAPENTIN 300 MG CAPSULE PO SCH ×4 (05:41→21:38)
[2018-04-10] MEDS: METHOCARBAMOL 750 MG in DEXTROSE 5% 100 ML IV SCH ×4 (05:41→23:28)
[2018-04-10] MEDS: NS + 20MEQ KCL 1,000 ML IV SCH ×2 (06:35→19:45)
[2018-04-10 07:26] VITALS: BP 160/86
[2018-04-10] MEDS: PIOGLITAZONE 15 MG TABLET PO SCH (07:56)
[2018-04-10] MEDS: MAGNESIUM CHLORIDE 64 MG TABLET.DR PO SCH ×2 (07:56→21:38)
[2018-04-10] MEDS: DEXAMETHASONE 4 MG/ML, 1ML IVPush SCH ×4 (07:56→23:28)
[2018-04-10] MEDS: LISINOPRIL 20 MG TABLET PO SCH (07:57)
[2018-04-10] MEDS: CITALOPRAM 20 MG TABLET PO SCH (07:57)
[2018-04-10] MEDS: FAMOTIDINE 20 MG TABLET PO SCH ×2 (07:57→21:38)
[2018-04-10] MEDS: SODIUM CHLORIDE 0.9% 1,000 ML IV SCH (07:59)
[2018-04-10] MEDS: VANCOMYCIN 2,000 MG in SODIUM CHLORIDE 0.9% 500 ML IV SCH (13:37)
[2018-04-10 13:44] VITALS: BP 160/81
[2018-04-10] MEDS: LACTOBACILLUS CHEW TABLET PO SCH ×2 (17:58→21:38)
[2018-04-10] MEDS: OXYcodone/APAP 10/325MG TABLET PO PRN ×2 (19:45→23:45)
[2018-04-10 19:50] VITALS: BP 154/78
[2018-04-10] MEDS: INSULIN DEGLUDEC 20 UNIT SQ-INSULIN SCH (21:39)
[2018-04-11 02:19] VITALS: BP 136/75
[2018-04-11] MEDS: PIPERACILLIN/TAZO/PMX 3.375GM 50 ML IV SCH ×4 (03:05→21:11)
[2018-04-11] MEDS: OXYcodone/APAP 10/325MG TABLET PO PRN ×3 (05:18→23:45)
[2018-04-11] MEDS: DEXAMETHASONE 4 MG/ML, 1ML IVPush SCH (05:18)
[2018-04-11] MEDS: GABAPENTIN 300 MG CAPSULE PO SCH ×4 (05:18→21:00)
[2018-04-11] MEDS: METHOCARBAMOL 750 MG in DEXTROSE 5% 100 ML IV SCH ×4 (05:18→21:02)
[2018-04-11] MEDS: VANCOMYCIN 2,000 MG in SODIUM CHLORIDE 0.9% 500 ML IV SCH (06:38)
[2018-04-11 07:06] VITALS: BP 154/74
[2018-04-11] MEDS: SODIUM CHLORIDE 0.9% 1,000 ML IV SCH (09:00)
[2018-04-11] MEDS: CITALOPRAM 20 MG TABLET PO SCH (09:13)
[2018-04-11] MEDS: LISINOPRIL 20 MG TABLET PO SCH (09:13)
[2018-04-11] MEDS: FAMOTIDINE 20 MG TABLET PO SCH ×2 (09:14→21:00)
[2018-04-11] MEDS: PIOGLITAZONE 15 MG TABLET PO SCH (09:14)
[2018-04-11] MEDS: LACTOBACILLUS CHEW TABLET PO SCH ×3 (09:14→21:01)
[2018-04-11] MEDS: MAGNESIUM CHLORIDE 64 MG TABLET.DR PO SCH ×2 (09:14→21:00)
[2018-04-11] MEDS: NS + 20MEQ KCL 1,000 ML IV SCH ×2 (11:17→23:12)
[2018-04-11] MEDS: HYDROcodone/APAP 10/325 MG TABLET PO PRN (11:17)
[2018-04-11] MEDS: METHOCARBAMOL 750 MG TABLET PO PRN ×2 (11:17→19:38)
[2018-04-11 12:35] VITALS: BP 156/83
[2018-04-11] MEDS: DEXAMETHASONE 4 MG/ML, 1ML IV SCH ×2 (12:43→21:00)
[2018-04-11 19:23] VITALS: BP 167/73
[2018-04-11] MEDS: INSULIN DEGLUDEC 20 UNIT SQ-INSULIN SCH (21:01)
[2018-04-12] MEDS: VANCOMYCIN 2,000 MG in SODIUM CHLORIDE 0.9% 500 ML IV SCH ×2 (00:54→03:22)
[2018-04-12] MEDS: PIPERACILLIN/TAZO/PMX 3.375GM 50 ML IV SCH ×3 (03:14→09:33)
[2018-04-12] MEDS: METHOCARBAMOL 750 MG in DEXTROSE 5% 100 ML IV SCH ×2 (03:49→11:00)
[2018-04-12] MEDS: METHOCARBAMOL 750 MG TABLET PO PRN (03:49)
[2018-04-12 04:00] VITALS: BP 146/76
[2018-04-12] MEDS: GABAPENTIN 300 MG CAPSULE PO SCH ×2 (06:10→09:34)
[2018-04-12] MEDS: DEXAMETHASONE 4 MG/ML, 1ML IV SCH (06:10)
[2018-04-12 07:21] VITALS: BP 153/79
[2018-04-12] MEDS: SODIUM CHLORIDE 0.9% 1,000 ML IV SCH (09:00)
[2018-04-12] MEDS ORDERED: DOXY100T PO (09:02)
[2018-04-12] MEDS: OXYcodone/APAP 10/325MG TABLET PO PRN (09:33)
[2018-04-12] MEDS: CITALOPRAM 20 MG TABLET PO SCH (09:34)
[2018-04-12] MEDS: LACTOBACILLUS CHEW TABLET PO SCH (09:34)
[2018-04-12] MEDS: FAMOTIDINE 20 MG TABLET PO SCH (09:34)
[2018-04-12] MEDS: MAGNESIUM CHLORIDE 64 MG TABLET.DR PO SCH (09:34)
[2018-04-12] MEDS: LISINOPRIL 20 MG TABLET PO SCH (09:34)
[2018-04-12] MEDS: PIOGLITAZONE 15 MG TABLET PO SCH (09:34)
[2018-04-12] MEDS: NS + 20MEQ KCL 1,000 ML IV SCH (11:00)
[2018-04-12] MEDS ORDERED: DEXAMETHASONE 4 MG/ML, 1ML IV SCH (13:00)
== END 2018-04-12 11:57 | disposition home or self-care (01) | DRG 907 ==
LOC: ED 20:29 → EDIP 21:12 → 4WST 22:12 → DCLOUNGE 04-12 11:10
PROVIDERS: ADMIT Internal Medicine; ATTEND Internal Medicine
PROC: 00CU0ZZ Extirpation of Matter from Spinal Canal, Open Approach (ICD-10-PCS; 2018-04-07)
PROC: 00NY0ZZ Release Lumbar Spinal Cord, Open Approach (ICD-10-PCS; principal; 2018-04-07 15:00)
DX: G97.63 Postprocedural seroma of a nervous system organ or structure following a nervous system procedure (principal); G06.2 Extradural and subdural abscess, unspecified; M48.061 Spinal stenosis, lumbar region without neurogenic claudication; E11.9 Type 2 diabetes mellitus without complications; Y83.8 Other surgical procedures as the cause of abnormal reaction of the patient, or of later complication, without mention of misadventure at the time of the procedure; F32.9 Major depressive disorder, single episode, unspecified; I11.9 Hypertensive heart disease without heart failure; R32 Unspecified urinary incontinence; Z80.0 Family history of malignant neoplasm of digestive organs; Z83.3 Family history of diabetes mellitus; Z87.891 Personal history of nicotine dependence; Y92.89 Other specified places as the place of occurrence of the external cause
CPT/HCPCS: 36415; 72158; 80048; 80202; 81001; 82040; 82565; 82962; 83605; 83735; 85025; 85610; 85651; 86140; 87040; 96361; 96374; A9585; G0378; J0171; J0696; J1100; J1170; J2405; J2543; J2704; J3010; J3370; J3480; J3490; C1781; J2765; J2800; J3475; J7030; J7040

== ENCOUNTER 2019-09-13 12:34 | Inpatient (IN) | payer MEDICARE, OTHER ==
[~2019-09-13] VITALS: Ht 170.2 cm; Wt 102.0 kg
[~2019-09-13 12:34] MED LIST changes: -ALPR-475 PO; +ALPR0.5T7 PO; +DOXY100T PO; -HYDR-3307 PO; +HYDR-36 PO
[2019-09-13] MEDS ORDERED: FAMOTIDINE 20 MG/2 ML ONE (12:51)
[2019-09-13] MEDS ORDERED: LORazepam 2 MG/ML, 1ML ONE (12:51)
[2019-09-13] MEDS ORDERED: ONDANSETRON 2MG/ML, 2ML ONE (12:51)
[2019-09-13] MEDS ORDERED: LORazepam 2 MG/ML, 1ML IVPush ONE (13:00)
[2019-09-13] MEDS ORDERED: ONDANSETRON 2MG/ML, 2ML IVPush ONE (13:00)
[2019-09-13] MEDS ORDERED: FAMOTIDINE 20 MG/2 ML IVPush ONE (13:00)
[2019-09-13] MEDS ORDERED: SODIUM CHLORIDE FLUSH 10ML SYR IVF ONE (13:00)
--- NOTE | 2019-09-13 13:06 | NUR ---
PT MEDICATED TO JUL, LAYING IN BED, VOMIT BAG IN HAND. PT HAS NOT VOMITTED, PT NO LONGER MOANING FROM PAIN.
[2019-09-13 13:09] LABS: BASOPHILS # (AUTO) 0.08 x10^3/uL (0-0.1); BASOPHILS % (AUTO) 1 % (0-1); EOSINOPHILS # (AUTO) 0.16 x10^3/uL (0-0.4); EOSINOPHILS % (AUTO) 1 % (1-7); LYMPHOCYTES # (AUTO) 2.73 x10^3/uL (1-3.4); LYMPHOCYTES % (AUTO) 25 % (22-44); MD NO; MEAN CORPUSCULAR HEMOGLOBIN 29.5 pg (27.0-34.8); MEAN CORPUSCULAR HGB CONC 33.3 g/dL (32.4-35.8); MEAN CORPUSCULAR VOLUME 88.5 fL (80-100); MEAN PLATELET VOLUME 8.3 fL (7.4-10.4); MONOCYTES # (AUTO) 0.48 x10^3/uL (0.2-0.8); MONOCYTES % (AUTO) 4 % (2-9); NEUTROPHILS # (AUTO) 7.36 x10^3/uL (1.8-6.8); NEUTROPHILS % (AUTO) 68 % (42-75); PLATELET COUNT 246 x10^3/uL (130-400); RED BLOOD COUNT 6.01 x10^6/uL (3.82-5.3); RED CELL DISTRIBUTION WIDTH 13.6 % (9.6-15.2)
[2019-09-13 13:20] LABS: ALANINE AMINOTRANSFERASE 31 U/L (12-78); ALBUMIN 3.5 g/dL (3.4-5.0); ANION GAP 11 mmol/L (5-15); CALCIUM 9.7 mg/dL (8.5-10.1); CHLORIDE 99 mmol/L (98-107); CREATININE 0.87 mg/dL (0.55-1.02)
[2019-09-13 13:24] LABS: ALKALINE PHOSPHATASE 108 U/L (45-117); BILIRUBIN,TOTAL 1.1 mg/dL (0.2-1.0); TOTAL PROTEIN 7.9 g/dL (6.4-8.2)
[2019-09-13] MEDS ORDERED: HEPARIN 25,000 UNITS/250ML PMX 250 ML ONE (13:41)
--- NOTE | 2019-09-13 13:52 | NUR ---
IGNACIO LUIS OKAY TO UPDATE: [phone]
[2019-09-13] MEDS ORDERED: NITROGLYCERIN OINT 2%, 1GM TP ONE ×2 (14:00→14:19)
[2019-09-13] MEDS ORDERED: ASPIRIN 81 MG TABLET CHEW PO ONE (14:00)
--- NOTE | 2019-09-13 14:09 | NUR ---
TASK RN: PHARMACY ASKED TO EXPEDITE VERIFICATION OF HEPARIN DRIP/BOLUS ORDER
[2019-09-13] MEDS ORDERED: HEPARIN 5,000 UNITS/ML, 1ML ONE (14:16)
--- NOTE | 2019-09-13 14:22 | NUR ---
DR. CHRISTENSEN AT BEDSIDE TO ADMIT DIET/IVF NEED CLARIFIED (BLOOD SUGAR 400). PATIENT ALLOWED TO HAVE SIPS OF WATER. SBP NOW UP TO 192/117-TO ADMIN 1 INCH NITROPASTE PER EMAR (DOSE CLARIFIED WITH DR. TREVIÑO)
[2019-09-13] MEDS ORDERED: ENALAPRILAT 1.25 MG/ML, 1ML IV PRN (14:30)
[2019-09-13] MEDS ORDERED: HEPARIN 5,000 UNITS/ML, 1ML IV PRN (14:30)
[2019-09-13] MEDS ORDERED: HEPARIN 25,000 UNITS/250ML PMX 250 ML IV PRN ×2 (14:30→19:30)
[2019-09-13] MEDS ORDERED: HEPARIN 5,000 UNITS/ML, 1ML IV ONE (14:30)
--- NOTE | 2019-09-13 14:45 | NUR ---
Task RN: Nitropaste admin deferred as nitropaste to left chest noted (ems placed). Dr. drake made aware. Asked for PRN for SBP-Dr. drake to place order shortly Heparin gtt/bolus administered per emar (bed scale weight) Report To Clarita RIVERA
--- NOTE | 2019-09-13 14:46 | NUR ---
PT LAYING IN BED, MOANING IN PAIN, ADMITTING MD AWARE (ASKED FOR PAIN MED ORDERS). US SOUND TO BEDSIDE. VSS.
--- NOTE | 2019-09-13 14:47 | NUR ---
REPORT TO YU RIVERA.
[2019-09-13] MEDS ORDERED: MORPHINE SULFATE 4 MG/ML, 1ML ONE (15:49)
[2019-09-13] MEDS: CALCIUM CARBONATE 500 MG TAB.CHEW PO SCH ×2 (15:55→20:35)
[2019-09-13] MEDS ORDERED: MORPHINE SULFATE 4 MG/ML, 1ML IVPush ONE (16:00)
[2019-09-13] MEDS: INSULIN LISPRO 100 UNITS/ML, PEN SQ-INSULIN SCH ×2 (16:38→20:54)
[2019-09-13 19:01] VITALS: BP 168/102
[2019-09-13 19:25] VITALS: BP 170/111
[2019-09-13 19:27] LABS: AMPHETAMINE SCREEN, URINE Positive (Negative); BARBITURATE SCREEN, URINE Negative (Negative); BENZODIAZEPINE SCREEN, URINE Negative (Negative); CANNABINOID SCREEN, URINE Positive (Negative); COCAINE SCREEN, URINE Negative (Negative); METHADONE SCREEN, URINE Negative (Negative); OPIATE SCREEN, URINE Positive (Negative)
[2019-09-13] MEDS: NITROGLYCERIN 0.4 MG BOTTLE (25 TABS) SL PRN (19:27)
[2019-09-13] MEDS ORDERED: HEPARIN GTT MC SCH (19:30)
[2019-09-13] MEDS ORDERED: NITROGLYCERIN 0.4 MG/SPRAY SL PRN (19:30)
[2019-09-13 19:33] VITALS: BP 129/87
[2019-09-13] MEDS: ATORVASTATIN 40 MG TABLET PO SCH (20:35)
[2019-09-13] MEDS: HEPARIN 5,000 UNITS/ML, 1ML IV PRN (22:13)
[2019-09-13] MEDS: MORPHINE SULFATE 4 MG/ML, 1ML IVPush PRN (22:15)
[2019-09-14 01:09] VITALS: BP 135/73
[2019-09-14 04:52] LABS: BASOPHILS # (AUTO) 0.04 x10^3/uL (0-0.1); BASOPHILS % (AUTO) 0 % (0-1); EOSINOPHILS # (AUTO) 0.22 x10^3/uL (0-0.4); EOSINOPHILS % (AUTO) 2 % (1-7); LYMPHOCYTES # (AUTO) 2.58 x10^3/uL (1-3.4); LYMPHOCYTES % (AUTO) 21 % (22-44); MD NO; MEAN CORPUSCULAR HEMOGLOBIN 29.3 pg (27.0-34.8); MEAN CORPUSCULAR HGB CONC 32.8 g/dL (32.4-35.8); MEAN CORPUSCULAR VOLUME 89.3 fL (80-100); MEAN PLATELET VOLUME 8.6 fL (7.4-10.4); MONOCYTES # (AUTO) 0.72 x10^3/uL (0.2-0.8); MONOCYTES % (AUTO) 6 % (2-9); NEUTROPHILS # (AUTO) 8.52 x10^3/uL (1.8-6.8); NEUTROPHILS % (AUTO) 71 % (42-75); PLATELET COUNT 238 x10^3/uL (130-400); RED CELL DISTRIBUTION WIDTH 13.8 % (9.6-15.2)
[2019-09-14 05:03] LABS: ANION GAP 8 mmol/L (5-15); CALCIUM 9.3 mg/dL (8.5-10.1); CHLORIDE 98 mmol/L (98-107); CREATININE 0.76 mg/dL (0.55-1.02); TRIGLYCERIDES 169 mg/dL (50-200); VLDL CHOLESTEROL 34 mg/dL (0-25)
[2019-09-14 05:14] LABS: CHOL/HDL RATIO 4.5; CHOLESTEROL, TOTAL 184 mg/dL (140-239); HDL CHOL % 22 % (28-40); HDL CHOLESTEROL (DIRECT) 41 mg/dL (40-60); LDL CHOLESTEROL,CALCULATED 109 mg/dL (54-169); LDL/HDL RATIO 2.7 (0.5-3.0)
[2019-09-14] MEDS: CALCIUM CARBONATE 500 MG TAB.CHEW PO SCH ×4 (05:14→21:16)
[2019-09-14] MEDS: HEPARIN 5,000 UNITS/ML, 1ML IV PRN (05:15)
[2019-09-14] MEDS: MORPHINE SULFATE 4 MG/ML, 1ML IVPush PRN (05:36)
[2019-09-14 06:43] LABS: CULTURE INDICATED? YES; MICROSCOPIC INDICATED
[2019-09-14] MEDS: INSULIN LISPRO 100 UNITS/ML, PEN SQ-INSULIN SCH ×4 (07:00→21:22)
[2019-09-14] MEDS ORDERED: INSULIN LISPRO 100 UNIT/ML, 3ML VIAL SQ-INSULIN STA (08:12)
[2019-09-14] MEDS: ASPIRIN 81 MG TABLET CHEW PO SCH (08:19)
[2019-09-14] MEDS ORDERED: SODIUM CHLORIDE 0.9% 1,000 ML IV SCH ×2 (09:00→10:51)
[2019-09-14 09:38] VITALS: BP 108/68
[2019-09-14] MEDS: CEFTRIAXONE PMX 1GM/50ML 50 ML IV SCH (10:16)
[2019-09-14] MEDS ORDERED: FENTANYL PF 100 MCG/2ML ONE (12:05)
[2019-09-14] MEDS ORDERED: TICAGRELOR 90 MG TABLET ONE (12:05)
[2019-09-14] MEDS ORDERED: VERAPAMIL 2.5 MG/ML, 2ML ONE (12:05)
[2019-09-14] MEDS ORDERED: MIDAZOLAM 1 MG/ML, 5ML ONE (12:05)
[2019-09-14] MEDS ORDERED: BIVALIRUDIN 250 MG ONE (12:06)
[2019-09-14] MEDS ORDERED: LIDOCAINE-MPF 1%, 5ML ONE (12:06)
[2019-09-14] MEDS: SODIUM CHLORIDE 0.9% 1,000 ML IV SCH ×2 (13:38→21:38)
[2019-09-14] MEDS: TICAGRELOR 90 MG TABLET PO SCH ×2 (14:25→21:16)
[2019-09-14 14:38] VITALS: BP 109/70
[2019-09-14 20:17] VITALS: BP 115/73
[2019-09-14] MEDS: ATORVASTATIN 40 MG TABLET PO SCH (21:16)
[2019-09-15 01:07] VITALS: BP 91/54
[2019-09-15] MEDS: SODIUM CHLORIDE 0.9% 1,000 ML IV SCH (04:22)
[2019-09-15 05:30] LABS: ALBUMIN 2.8 g/dL (3.4-5.0); ANION GAP 7 mmol/L (5-15); CALCIUM 8.7 mg/dL (8.5-10.1); CHLORIDE 101 mmol/L (98-107)
[2019-09-15 05:32] LABS: BASOPHILS # (AUTO) 0.02 x10^3/uL (0-0.1); BASOPHILS % (AUTO) 0 % (0-1); EOSINOPHILS # (AUTO) 0.16 x10^3/uL (0-0.4); EOSINOPHILS % (AUTO) 2 % (1-7); LYMPHOCYTES # (AUTO) 2.45 x10^3/uL (1-3.4); LYMPHOCYTES % (AUTO) 22 % (22-44); MD NO; MEAN CORPUSCULAR HEMOGLOBIN 29.5 pg (27.0-34.8); MEAN CORPUSCULAR HGB CONC 33.1 g/dL (32.4-35.8); MEAN CORPUSCULAR VOLUME 89.2 fL (80-100); MEAN PLATELET VOLUME 8.5 fL (7.4-10.4); MONOCYTES # (AUTO) 0.67 x10^3/uL (0.2-0.8); MONOCYTES % (AUTO) 6 % (2-9); NEUTROPHILS # (AUTO) 7.74 x10^3/uL (1.8-6.8); NEUTROPHILS % (AUTO) 70 % (42-75); PLATELET COUNT 211 x10^3/uL (130-400); RED BLOOD COUNT 5.76 x10^6/uL (3.82-5.3); RED CELL DISTRIBUTION WIDTH 13.7 % (9.6-15.2)
[2019-09-15 05:34] LABS: ALANINE AMINOTRANSFERASE 26 U/L (12-78); ALKALINE PHOSPHATASE 97 U/L (45-117); BILIRUBIN,TOTAL 0.9 mg/dL (0.2-1.0)
[2019-09-15] MEDS: CALCIUM CARBONATE 500 MG TAB.CHEW PO SCH ×4 (06:08→19:57)
[2019-09-15 08:30] VITALS: BP 144/78
[2019-09-15] MEDS: ASPIRIN 81 MG TABLET CHEW PO SCH (08:40)
[2019-09-15] MEDS: TICAGRELOR 90 MG TABLET PO SCH ×2 (08:40→19:58)
[2019-09-15] MEDS: INSULIN LISPRO 100 UNITS/ML, PEN SQ-INSULIN SCH ×4 (08:40→20:06)
[2019-09-15] MEDS ORDERED: LISINOPRIL 20 MG TABLET PO SCH (09:30)
[2019-09-15] MEDS ORDERED: INSULIN GLARGINE 100 UNITS/ML, PEN SQ-INSULIN SCH ×2 (09:30→21:00)
[2019-09-15] MEDS: CEFTRIAXONE PMX 1GM/50ML 50 ML IV SCH (10:13)
[2019-09-15] MEDS: CITALOPRAM 20 MG TABLET PO SCH (10:51)
[2019-09-15 13:33] VITALS: BP 128/76
[2019-09-15] MEDS ORDERED: METOPROLOL SUCCINATE 25 MG TAB.ER.24H PO SCH ×3 (14:00→18:00)
[2019-09-15 14:56] VITALS: BP 117/59
[2019-09-15 19:35] VITALS: BP 126/75
[2019-09-15] MEDS: NITROGLYCERIN 0.4 MG BOTTLE (25 TABS) SL PRN ×2 (19:37→19:49)
[2019-09-15] MEDS: ATORVASTATIN 40 MG TABLET PO SCH (19:57)
[2019-09-16 01:03] VITALS: BP 134/70
[2019-09-16 05:25] LABS: ALBUMIN 2.9 g/dL (3.4-5.0); ANION GAP 7 mmol/L (5-15); CALCIUM 8.7 mg/dL (8.5-10.1); CHLORIDE 104 mmol/L (98-107)
[2019-09-16 05:29] LABS: ALANINE AMINOTRANSFERASE 27 U/L (12-78); ALKALINE PHOSPHATASE 102 U/L (45-117); BILIRUBIN,TOTAL 0.7 mg/dL (0.2-1.0); CREATININE 0.69 mg/dL (0.55-1.02); TOTAL PROTEIN 7.3 g/dL (6.4-8.2)
[2019-09-16 05:38] LABS: BASOPHILS # (AUTO) 0.02 x10^3/uL (0-0.1); BASOPHILS % (AUTO) 0 % (0-1); EOSINOPHILS # (AUTO) 0.26 x10^3/uL (0-0.4); EOSINOPHILS % (AUTO) 3 % (1-7); LYMPHOCYTES # (AUTO) 2.63 x10^3/uL (1-3.4); LYMPHOCYTES % (AUTO) 26 % (22-44); MD NO; MEAN CORPUSCULAR HEMOGLOBIN 30.1 pg (27.0-34.8); MEAN CORPUSCULAR HGB CONC 33.3 g/dL (32.4-35.8); MEAN CORPUSCULAR VOLUME 90.2 fL (80-100); MEAN PLATELET VOLUME 8.5 fL (7.4-10.4); MONOCYTES # (AUTO) 0.74 x10^3/uL (0.2-0.8); MONOCYTES % (AUTO) 7 % (2-9); NEUTROPHILS # (AUTO) 6.51 x10^3/uL (1.8-6.8); NEUTROPHILS % (AUTO) 64 % (42-75); PLATELET COUNT 260 x10^3/uL (130-400); RED BLOOD COUNT 5.67 x10^6/uL (3.82-5.3); RED CELL DISTRIBUTION WIDTH 13.6 % (9.6-15.2)
[2019-09-16] MEDS: CALCIUM CARBONATE 500 MG TAB.CHEW PO SCH ×4 (05:50→20:07)
[2019-09-16 07:21] VITALS: BP 139/79
[2019-09-16] MEDS: INSULIN GLARGINE 100 UNITS/ML, PEN SQ-INSULIN SCH ×2 (08:18→20:07)
[2019-09-16] MEDS: CITALOPRAM 20 MG TABLET PO SCH (08:19)
[2019-09-16] MEDS: INSULIN LISPRO 100 UNITS/ML, PEN SQ-INSULIN SCH ×4 (08:19→20:07)
[2019-09-16] MEDS: TICAGRELOR 90 MG TABLET PO SCH ×2 (08:19→20:08)
[2019-09-16] MEDS: ASPIRIN 81 MG TABLET CHEW PO SCH (08:19)
[2019-09-16] MEDS: METOPROLOL SUCCINATE 50 MG TAB.ER.24H PO SCH ×2 (08:57→20:07)
[2019-09-16] MEDS ORDERED: LISINOPRIL 5 MG TABLET PO SCH (09:00)
[2019-09-16] MEDS: CEFTRIAXONE PMX 1GM/50ML 50 ML IV SCH (10:22)
[2019-09-16 12:24] VITALS: BP 156/74
[2019-09-16 20:05] VITALS: BP 132/80
[2019-09-16] MEDS: ATORVASTATIN 40 MG TABLET PO SCH (20:07)
[2019-09-17 02:46] VITALS: BP 152/87
[2019-09-17 05:48] LABS: BASOPHILS # (AUTO) 0.05 x10^3/uL (0-0.1); BASOPHILS % (AUTO) 1 % (0-1); EOSINOPHILS # (AUTO) 0.29 x10^3/uL (0-0.4); EOSINOPHILS % (AUTO) 3 % (1-7); LYMPHOCYTES # (AUTO) 2.63 x10^3/uL (1-3.4); LYMPHOCYTES % (AUTO) 26 % (22-44); MD NO; MEAN CORPUSCULAR HEMOGLOBIN 29.9 pg (27.0-34.8); MEAN CORPUSCULAR HGB CONC 33.3 g/dL (32.4-35.8); MEAN CORPUSCULAR VOLUME 89.6 fL (80-100); MEAN PLATELET VOLUME 8.7 fL (7.4-10.4); MONOCYTES # (AUTO) 0.76 x10^3/uL (0.2-0.8); MONOCYTES % (AUTO) 8 % (2-9); NEUTROPHILS # (AUTO) 6.43 x10^3/uL (1.8-6.8); NEUTROPHILS % (AUTO) 63 % (42-75); PLATELET COUNT 249 x10^3/uL (130-400); RED CELL DISTRIBUTION WIDTH 13.7 % (9.6-15.2)
[2019-09-17 06:03] LABS: CHLORIDE 103 mmol/L (98-107)
[2019-09-17] MEDS: CALCIUM CARBONATE 500 MG TAB.CHEW PO SCH ×2 (06:04→12:24)
[2019-09-17 06:07] LABS: ALANINE AMINOTRANSFERASE 30 U/L (12-78); ALBUMIN 2.8 g/dL (3.4-5.0); ALKALINE PHOSPHATASE 95 U/L (45-117); ANION GAP 8 mmol/L (5-15); BILIRUBIN,TOTAL 0.5 mg/dL (0.2-1.0); CALCIUM 8.7 mg/dL (8.5-10.1); CREATININE 0.61 mg/dL (0.55-1.02); TOTAL PROTEIN 7.2 g/dL (6.4-8.2)
[2019-09-17 07:10] VITALS: BP 126/77
[2019-09-17] MEDS ORDERED: INSULIN GLARGINE 100 UNITS/ML, PEN SQ-INSULIN SCH (09:00)
[2019-09-17] MEDS ORDERED: LISINOPRIL 10 MG TABLET PO SCH (09:00)
[2019-09-17] MEDS ORDERED: CEFDINIR 300 MG CAPSULE PO SCH (09:00)
[2019-09-17] MEDS: TICAGRELOR 90 MG TABLET PO SCH (09:25)
[2019-09-17] MEDS: INSULIN LISPRO 100 UNITS/ML, PEN SQ-INSULIN SCH ×2 (09:29→12:24)
[2019-09-17] MEDS: ASPIRIN 81 MG TABLET CHEW PO SCH (09:31)
[2019-09-17] MEDS: CITALOPRAM 20 MG TABLET PO SCH (09:31)
[2019-09-17] MEDS ORDERED: METO-93 PO (10:39)
[2019-09-17] MEDS ORDERED: LISI-167 PO (10:39)
[2019-09-17] MEDS ORDERED: INSU100I11 SQ-INSULIN (10:39)
[2019-09-17] MEDS ORDERED: CEFD300C37 PO (10:39)
[2019-09-17] MEDS ORDERED: NITR0.4T28 SL (10:39)
[2019-09-17] MEDS ORDERED: ATOR40TA78 PO (10:39)
[2019-09-17] MEDS ORDERED: ASPI-515 PO (10:39)
[2019-09-17] MEDS ORDERED: INSU100I13 SQ-INSULIN (10:39)
[2019-09-17] MEDS ORDERED: TICA90TA PO (10:39)
== END 2019-09-17 12:43 | disposition home or self-care (01) | DRG 281 ==
LOC: ED 12:39 → EDIP 14:06 → 5SO 15:20
PROVIDERS: ADMIT Internal Medicine; ATTEND Internal Medicine
PROC: 4A023N7 Measurement of Cardiac Sampling and Pressure, Left Heart, Percutaneous Approach (ICD-10-PCS; principal; 2019-09-14)
PROC: B2151ZZ Fluoroscopy of Left Heart using Low Osmolar Contrast (ICD-10-PCS; 2019-09-14)
PROC: B2111ZZ Fluoroscopy of Multiple Coronary Arteries using Low Osmolar Contrast (ICD-10-PCS; 2019-09-14)
PROC: 02JA3ZZ Inspection of Heart, Percutaneous Approach (ICD-10-PCS; 2019-09-14)
DX: I21.4 Non-ST elevation (NSTEMI) myocardial infarction (principal); N39.0 Urinary tract infection, site not specified; I50.9 Heart failure, unspecified; I11.0 Hypertensive heart disease with heart failure; I16.0 Hypertensive urgency; E78.5 Hyperlipidemia, unspecified; E66.9 Obesity, unspecified; D75.1 Secondary polycythemia; E11.65 Type 2 diabetes mellitus with hyperglycemia; F15.10 Other stimulant abuse, uncomplicated; I25.10 Atherosclerotic heart disease of native coronary artery without angina pectoris; Z87.891 Personal history of nicotine dependence; Z98.51 Tubal ligation status; Z91.14 Patient's other noncompliance with medication regimen; Z83.3 Family history of diabetes mellitus; Z68.35 Body mass index [BMI] 35.0-35.9, adult; Z79.4 Long term (current) use of insulin; F15.129 Other stimulant abuse with intoxication, unspecified; I73.9 Peripheral vascular disease, unspecified
CPT/HCPCS: 36415; 71045; 76700; 80048; 80053; 80061; 80307; 81001; 82962; 83036; 83605; 83690; 83735; 83880; 84443; 84484; 85025; 85379; 85520; 86592; 87086; 87491; 87591; 92920; 93005; 93458; 93922; 96374; 96375; 99156; 99157; C1769; C1894; C8929; G0378; J0583; J0696; J1644; J2250; J2405; J3010; Q9957; C1725; C1887; J1815; J2060; J2270; J3490; J7030; Q9967

== ENCOUNTER 2019-09-18 07:05 | Inpatient (IN) | payer MEDICARE ==
[~2019-09-18] VITALS: Ht 170.2 cm; Wt 97.8 kg
[2019-09-18] VITALS (7 sets, daily range): BP systolic 91–152; BP diastolic 56–81
[~2019-09-18 07:05] MED LIST changes: +ASPI-515 PO; +ATOR40TA78 PO; +CEFD300C37 PO; +INSU100I11 SQ-INSULIN; +INSU100I13 SQ-INSULIN; +LISI-167 PO; +METO-93 PO; +NITR0.4T28 SL; +TICA90TA PO
--- NOTE | 2019-09-18 07:25 | NUR ---
PT LAYING IN BED, VOMIT BAG IN HAND SHOULD THE PT NEED IT, CALL LIGHT WITHIN REACH. ERP TO BEDSIDE.
[2019-09-18] MEDS ORDERED: ONDANSETRON 2MG/ML, 2ML IVPush ONE (07:30)
[2019-09-18] MEDS ORDERED: SODIUM CHLORIDE FLUSH 10ML SYR IVF ONE (07:30)
[2019-09-18] MEDS ORDERED: MORPHINE SULFATE 4 MG/ML, 1ML IVPush PRN ×2 (07:30→15:30)
[2019-09-18] MEDS ORDERED: ONDANSETRON 2MG/ML, 2ML ONE (07:38)
[2019-09-18] MEDS ORDERED: MORPHINE SULFATE 4 MG/ML, 1ML ONE (07:38)
[2019-09-18 08:06] LABS: BASOPHILS # (AUTO) 0.02 x10^3/uL (0-0.1); BASOPHILS % (AUTO) 0 % (0-1); EOSINOPHILS # (AUTO) 0.28 x10^3/uL (0-0.4); EOSINOPHILS % (AUTO) 3 % (1-7); LYMPHOCYTES # (AUTO) 2.54 x10^3/uL (1-3.4); LYMPHOCYTES % (AUTO) 25 % (22-44); MD NO; MEAN CORPUSCULAR HEMOGLOBIN 30.2 pg (27.0-34.8); MEAN PLATELET VOLUME 8.4 fL (7.4-10.4); MONOCYTES # (AUTO) 0.64 x10^3/uL (0.2-0.8); MONOCYTES % (AUTO) 6 % (2-9); NEUTROPHILS # (AUTO) 6.58 x10^3/uL (1.8-6.8); NEUTROPHILS % (AUTO) 66 % (42-75); PLATELET COUNT 265 x10^3/uL (130-400); RED BLOOD COUNT 5.58 x10^6/uL (3.82-5.3); RED CELL DISTRIBUTION WIDTH 13.4 % (9.6-15.2)
[2019-09-18 08:13] LABS: ALBUMIN 2.7 g/dL (3.4-5.0); ANION GAP 9 mmol/L (5-15); CHLORIDE 102 mmol/L (98-107)
[2019-09-18 08:19] LABS: ALANINE AMINOTRANSFERASE 27 U/L (12-78); ALKALINE PHOSPHATASE 98 U/L (45-117); BILIRUBIN,TOTAL 0.6 mg/dL (0.2-1.0); CREATININE 0.74 mg/dL (0.55-1.02)
--- NOTE | 2019-09-18 08:30 | NUR ---
PT LAYING IN BED STATES SOME RELIEF FROM MEDS, VSS, NO SIGNS OF DISTRESS.
--- NOTE | 2019-09-18 09:02 | NUR ---
REPORT GIVEN TO AGA PT CONDITION UNCHAGED.
[2019-09-18] MEDS: GABAPENTIN 300 MG CAPSULE PO SCH ×4 (10:00→20:49)
[2019-09-18] MEDS ORDERED: METHOCARBAMOL 750 MG TABLET PO PRN (10:00)
[2019-09-18] MEDS ORDERED: NITROGLYCERIN SINGLE TAB 0.4 MG SL PRN (10:00)
[2019-09-18] MEDS ORDERED: INSULIN LISPRO 100 UNITS/ML, PEN SQ-INSULIN SCH (11:00)
[2019-09-18] MEDS: ISOSORBIDE MONONITRATE ER 30 MG TABLET PO SCH (11:11)
[2019-09-18] MEDS: CEFDINIR 300 MG CAPSULE PO SCH ×2 (11:11→20:49)
[2019-09-18] MEDS: LISINOPRIL 10 MG TABLET PO SCH (11:11)
[2019-09-18] MEDS: TICAGRELOR 90 MG TABLET PO SCH ×2 (11:12→20:48)
[2019-09-18] MEDS: INSULIN LISPRO 100 UNITS/ML, PEN SQ-INSULIN SCH ×3 (11:49→21:11)
[2019-09-18] MEDS: HEPARIN 5,000 UNITS/ML, 1ML SQ SCH ×2 (14:49→23:23)
[2019-09-18] MEDS ORDERED: CITALOPRAM 20 MG TABLET PO ONE (16:00)
[2019-09-18] MEDS ORDERED: LORazepam 2 MG/ML, 1ML IVPush PRN (16:00)
[2019-09-18] MEDS ORDERED: METOPROLOL SUCCINATE 50 MG TAB.ER.24H PO SCH (21:00)
[2019-09-18] MEDS ORDERED: ATORVASTATIN 40 MG TABLET PO SCH (21:00)
[2019-09-18] MEDS: INSULIN GLARGINE 100 UNITS/ML, PEN SQ-INSULIN SCH (21:10)
[2019-09-19 00:12] VITALS: BP 97/58
[2019-09-19] MEDS: GABAPENTIN 300 MG CAPSULE PO SCH ×2 (04:39→11:31)
[2019-09-19 05:27] LABS: BASOPHILS # (AUTO) 0.03 x10^3/uL (0-0.1); BASOPHILS % (AUTO) 0 % (0-1); EOSINOPHILS # (AUTO) 0.28 x10^3/uL (0-0.4); EOSINOPHILS % (AUTO) 3 % (1-7); LYMPHOCYTES # (AUTO) 2.78 x10^3/uL (1-3.4); LYMPHOCYTES % (AUTO) 33 % (22-44); MD NO; MEAN CORPUSCULAR HEMOGLOBIN 29.4 pg (27.0-34.8); MEAN PLATELET VOLUME 8.5 fL (7.4-10.4); MONOCYTES # (AUTO) 0.66 x10^3/uL (0.2-0.8); MONOCYTES % (AUTO) 8 % (2-9); NEUTROPHILS # (AUTO) 4.82 x10^3/uL (1.8-6.8); NEUTROPHILS % (AUTO) 56 % (42-75); PLATELET COUNT 263 x10^3/uL (130-400); RED BLOOD COUNT 5.39 x10^6/uL (3.82-5.3); RED CELL DISTRIBUTION WIDTH 13.7 % (9.6-15.2)
[2019-09-19 05:31] LABS: ANION GAP 6 mmol/L (5-15); CALCIUM 8.6 mg/dL (8.5-10.1); CHLORIDE 103 mmol/L (98-107); CREATININE 0.69 mg/dL (0.55-1.02)
[2019-09-19 06:50] VITALS: BP 128/70
[2019-09-19] MEDS: CEFDINIR 300 MG CAPSULE PO SCH (07:52)
[2019-09-19] MEDS: HEPARIN 5,000 UNITS/ML, 1ML SQ SCH (07:52)
[2019-09-19] MEDS: TICAGRELOR 90 MG TABLET PO SCH (07:53)
[2019-09-19] MEDS: ISOSORBIDE MONONITRATE ER 30 MG TABLET PO SCH (07:53)
[2019-09-19] MEDS: INSULIN GLARGINE 100 UNITS/ML, PEN SQ-INSULIN SCH (08:06)
[2019-09-19] MEDS: LISINOPRIL 10 MG TABLET PO SCH (08:06)
[2019-09-19] MEDS: INSULIN LISPRO 100 UNITS/ML, PEN SQ-INSULIN SCH ×2 (08:06→11:59)
[2019-09-19] MEDS ORDERED: ASPIRIN 81 MG TABLET EC PO SCH (09:00)
[2019-09-19] MEDS ORDERED: CITALOPRAM 20 MG TABLET PO SCH (09:00)
[2019-09-19 10:08] LABS: MICROSCOPIC INDICATED
[2019-09-19 10:10] LABS: CULTURE INDICATED? YES
[2019-09-19 10:12] LABS: AMPHETAMINE SCREEN, URINE Negative (Negative); BARBITURATE SCREEN, URINE Negative (Negative); BENZODIAZEPINE SCREEN, URINE Negative (Negative); CANNABINOID SCREEN, URINE Positive (Negative); COCAINE SCREEN, URINE Negative (Negative); METHADONE SCREEN, URINE Negative (Negative); OPIATE SCREEN, URINE Positive (Negative)
[2019-09-19] MEDS ORDERED: ISOS30TA8 PO (10:35)
[2019-09-19 12:45] VITALS: BP 128/76
== END 2019-09-19 13:18 | disposition home or self-care (01) | DRG 303 ==
LOC: ED 07:27 → EDIP 08:14 → 5SO 09:13
PROVIDERS: ADMIT Internal Medicine; ATTEND Internal Medicine
DX: I25.10 Atherosclerotic heart disease of native coronary artery without angina pectoris (principal); N39.0 Urinary tract infection, site not specified; D75.1 Secondary polycythemia; E11.65 Type 2 diabetes mellitus with hyperglycemia; E66.9 Obesity, unspecified; F15.90 Other stimulant use, unspecified, uncomplicated; I10 Essential (primary) hypertension; I25.2 Old myocardial infarction; Z68.33 Body mass index [BMI] 33.0-33.9, adult; Z79.4 Long term (current) use of insulin; Z87.891 Personal history of nicotine dependence
CPT/HCPCS: 36415; 71045; 80048; 80053; 80307; 81001; 82962; 83605; 83735; 84484; 85025; 87086; 93005; 96374; G0378; J1644; J2405; J1815; J2270